=== PATIENT | male | born 1980 | race Caucasian/White ===

== ENCOUNTER 2022-04-04 12:08 | Emergency (ER) | payer BC, SELFPAY ==
[2022-04-04 12:15] VITALS: BP 142/91; PULSE 77; RESP 20; TEMP 36.7; O2SAT 97; BMI 45.9
[2022-04-04 12:30] VITALS: BP 127/73; PULSE 66; RESP 20; O2SAT 96
--- NOTE | 2022-04-04 12:34 | ED_ITS ---
HPI - General Adult General Chief complaint: Arrhythmia/Palpitations Stated complaint: Irregular heart beat Time Seen by Provider: 04/04/22 12:11 Source: patient Mode of arrival: ambulatory Limitations: no limitations History of Present Illness HPI narrative: 42-year-old male coming in today with concerns about skipped beats. Patient states that he has a pulse oximetry at home and he noticed that on the pulse ox imetry the rib be a skipped beat every now and then. He then took his pulse for a while and noticed that every now and then he would skip a beat. He denies feeling the skipped beats. He denies any symptoms whatsoever. Patient does have family history of heart disease with members getting pacemakers. He also has obesity, hyperlipidemia, obstructive sleep apnea and anxiety himself. He does use a CPAP at night. He takes hydroxyzine as needed and atorvastatin daily. Review of Systems Status of ROS: Reports: 10 or more systems reviewed and unremarkable except as noted in History and below Exam Narrative: Exam Narrative: Overweight, well-developed patient in no acute distress. Alert and oriented. Answers questions appropriately. Mood and affect are appropriate. Thoughts are goal oriented and rational. No tangential or magical thinking noted. Patient speaks in full sentences without needing to catch their breath. HEENT: Normocephalic atraumatic. Pupils are equally round reactive to light. Extraocular muscles are intact. Conjunctivae are moist without any icterus noted. Moist mucous membranes. Posterior pharynx is normal. Neck is soft without any lymphadenopathy or thyromegaly. No masses are appreciated. Cardiovascular: Heart is regular rate and rhythm S1 and S2 are present without any murmurs. Lungs: Clear to auscultation bilaterally no wheezes rhonchi or rales are apprec iated. Patient takes deep breaths without any discomfort. Abdomen: Soft and nontender nondistended, protuberant with normal bowel sounds. Extremities: Bilateral lower extremities are without edema. Skin: Well perfused . Patient has some folliculitis over the abdominal wall which he states he sees Dermatology for. Const: Vital Signs, click to edit/add: Vital Signs - 24 hr 04/04/22 12:15 Temperature 98.1 F Pulse Rate [Pulse Oximeter] 77 Respiratory Rate 20 Blood Pressure [Le ft Upper Arm] 142/91 H Pulse Oximetry 97 Oxygen Delivery Me thod Room Air Course Course Hospital Course: Two EKGs were done: 1st EKG showed normal sinus rhythm with a pulse of 70 2nd EKG showed normal sinus rhythm with a PVC. Patient was hooked up to the heart monitor and there we also saw the occasional PVC. No other it arrhythmias were noted. Vital Signs Vital signs: Initial Vital Signs Temperature 98.1 F 04/04/22 12:15 Temperature Source Temporal Artery Scan 04/04/22 12:15 Pulse Rate 77 04/04/22 12:15 Respiratory Rate 20 04/04/22 12:15 Blood Pressure 142/91 H 04/04/22 12:15 Blood Pressure Mean 108 04/04/22 12:15 Blood Pressure Position Supine 04/04/22 12:15 Pulse Oximetry 97 04/04/22 12:15 Oxygen Delivery Method 04/04/22 12:15 Vital Signs Temperature 98.1 F 04/04/22 12:15 Pulse Rate 77 04/04/22 12:15 Respiratory Rate 20 04/04/22 12:15 Blood Pressure 142/91 H 04/04/22 12:15 Pulse Oximetry 97 04/04/22 12:15 Oxygen Delivery Method 04/04/22 12:15 Temperature 98.1 F 04/04/22 12:15 Pulse Rate 77 04/04/22 12:15 Respiratory Rate 20 04/04/22 12:15 Blood Pressure 142/91 H 04/04/22 12:15 Pulse Oximetry 97 04/04/22 12:15 Oxygen Delivery Method 04/04/22 12:15 Medical Decision Making MDM Narrative Medical decision making narrative: 42-year-old male with a symptomatic PVCs. We discussed what these are. We discussed following up with primary care if he feels like they are getting more frequent or if he starts to feel them. Patient was otherwise reassured. Discharge Plan Discharge Clinical Impression: Premature ventricular contraction Patient Disposition: Home, Self-Care Condition: Stable Additional Instructions: You have a premature ventricular contractions which are a benign extra heartbeat that you do not need to be concerned about. If they become more frequent you start to feel them or they cause you anxiety, follow-up with your primary care provider to discuss medications to decrease their frequency. Follow Up/Referrals: Chuck Vanessa MD [Primary Care Provider] - Stand Alone Forms: One On One Info Instructions
[2022-04-04 12:46] VITALS: BP 127/73; PULSE 66; RESP 20; TEMP 36.7
--- OUTSIDE RECORDS SUMMARY | 2022-04-04 12:46 | XMS_ITS | Encounter Summary ---
:1980 Author Organization [facility] Address [address] [place] [address] Care Team Providers Name Role Phone Unavailable Primary Care Provider Unavailable Reason for Visit Reason Onset Date Comments Testing For Upper Respiratory Virus Symptoms 06/23/2021 Encounter Details Date Type Department Care Team Description 06/23/2021 External Outreach Department of Family Shahriar Carpio Contact With And (Suspected) Exposure To COVID-19; [facility] Infection Upper Respiratory [facility], in [address] [address] [place], [place] [phone] (Work) [phone] Social History Tobacco Use Types Packs/Day Years Used Date Smoking Tobacco: Never Assessed Sex Assigned at Date Recorded Not on file documented as of this encounter Progress Notes Talia Malcolm R.N. - 06/23/2021 7:54 AM CST Encounter created for symptomatic infectious disease screening with possible COVID, Influenza, RSV, and/or Group A Strep testing. ACUTE CARE NURSE documented in this encounter Miscellaneous Notes Result Encounter Note - Ezio Glover R.N. - 06/24/2021 5:49 PM SUB ACUTE CARE NURSE The patient will be contacted if they are eligible and appointments are available for Monoclonal Antibody Infusion and/or Remote Patient Monitoring. The [facility] Covid Care Team (CCT) sends general guidance about COVID-19 to all patients by letter or portal, except when a patient is hospitalized or resides in a shelter. [facility] will call all adult patients at highest risk for severe complications of COVID-19 (MASS 3 or greater) and all who require an inbound sales advisor. Any patient with a MASS score 1 or greater or a COVID-19 score 1 or greater may be at higher risk ofsevere disease. These patients will follow up directly with primary care. The primary care team willdecide if the patient needs a phone call or a follow up portal message to assess symptom severity, provide individualized guidance on symptom monitoring or symptom management, or to reinforce when to se ek care. [facility] encourages patients to follow up with their PCP with questions, worsening symptoms, or for symptom management. For questions, contact the [facility] Care Team ([facility]): Pager: [phone] In basket: P [facility] COVID-19 POSITIVE Covid Care e-consult Components of the Monoclonal Antibody Selection Score (MASS) Compromised Immune System/Transplant = 4 points Chronic Kidney Disease on Dialysis = 4 points Age greater than or equal to 55 and chronic pulmonary disease = 3 points Age greater than or equal to 65 = 2 points Diabetes = 2 points Age greater than or equal to 55 AND cardiovascular disease = 2 points Age greater than or equal to 55 and hypertension = 1 point NOTE: At the time of testing, patients are instructed to obtain the result by calling the [facility] result line or by checking their online services account. ACUTE CARE NURSE documented in this encounter Plan of Treatment Not on filedocumented as of this encounter Procedures Procedure Name Priority Date/Time Associated Diagnosis Comme nts INFLUENZA A/B AND Routine 06/23/2021 8:29 AM Infection Upper R esults for this RSV, PCR, VARIES SUB ACUTE CARE NURSE Respiratory procedure a re in the results section. SARS CORONAVIRUS-2 Routine 06/23/2021 8:29 AM Contact With And Results for this RNA, V SUB ACUTE CARE NURSE (Suspected) Exposure procedu re are in To COVID-19 the results section. documented in this encounter Results Influenza A/B and RSV, PCR, Varies (06/23/2021 8:29 AM SUB ACUTE CARE NURSE) [facility] Method Time Signature Influenza A/B Swab, 07/01/2021 DTL and RSV, Nasopharynx 9:54 PM SUB ACUTE CARE NURSE Source Influenza A, Undetected Undetected 07/01/2021 DTL PCR 9:54 PM SUB ACUTE CARE NURSE Comment: Influenza A RNA absent. Influenza B, PCR Undetected Undetected 07/01/2021 9:54 PM CS T DTL Comment: Influenza B RNA absent. Respiratory Syncytial Virus, PCR Undetected Undetected 9:54 PM SUB ACUTE CARE NURSE DTL Comment: RSV RNA absent. ----ADDITIONAL INFORMATION---- This test has been modified from the man ufacturer's instructions. Its performance characteristics were determi he by [facility] in a manner consistent with CLIA requirements. This test has not been cleared or approved by the U.S. Food and Drug Administration . Specimen Anatomical Collection Method Collection Time Receive d Time (Source) Location / / Volume Laterality Varies 06/23/2021 8:29 AM (Nasopharynx) SUB ACUTE CARE NURSE 11:22 PM SUB ACUTE CARE NURSE Shahriar Carpio D.O. LAB MICROBIOLOGY - GENERAL O RDERABLES Performing Organization Address City/State/ZIP Code Phon e Number [facility] - [address] [place], [place] [address] [facility] [place] [address] Laboratories-[facility] [address] (ABNORMAL) SARS Coronavirus-2 RNA, V Symptomatic (06/23/2021 8:29 AM SUB ACUTE CARE NURSE) [facility] Method Time Signature SARS-CoV-2 Swab, 06/24/2021 [facility] Specimen Nasopharynx 12:14 AM Source SUB ACUTE CARE NURSE SARS CoV-2 Detected (A) Undetected 06/24/2021 [facility] RNA, TMA 12:14 AM SUB ACUTE CARE NURSE Comment: SARS-CoV-2 RNA present. ----ADDITIONAL INFORMATION---- This molecular amplification test was pe rformed using the Aptima SARS-CoV-2 assay ([employer] on the Resermaps tem under emergency use authorization (EUA) by the U.S. Food and Drug Administ ration. Fact sheets for this EUA assay can be fo und at the following links: For Healthcare Providers: https://www.fd a.gov/media/689319/download For Patients: https://www.fda.gov/media/ 020196/download Specimen Anatomical Collection Method Collection Time Receive d Time (Source) Location / / Volume Laterality Varies 06/23/2021 8:29 AM 3:46 (Nasopharynx) SUB ACUTE CARE NURSE PM SUB ACUTE CARE NURSE Shahriar Carpio D.O. LAB MICROBIOLOGY - GENERAL O RDERABLES Performing Organization Address City/State/[facility] Phon e Number [facility]- [address] [place] [address] [place] [address] System in [place] [address] [place] [address] documented in this encounter Visit Diagnoses Diagnosis Contact With And (Suspected) Exposure To COVID-19 Infection Upper Respiratory documented in this encounter Additional Health Concerns Infection Onset Date Last Indicated Resolved Time COVID19 Pending 06/23/2021 06/23/2021 06/24/2021 12:14 AM SUB ACUTE CARE NURSE documented as of this encounter
--- OUTSIDE RECORDS SUMMARY | 2022-04-04 12:46 | XMS_ITS | Encounter Summary ---
:1980 Author Organization [facility] Address [address] [place] [address] Care Team Providers Name Role Phone Unavailable Primary Care Provider Unavailable Encounter Details Date Type Department Care Team Description 02/13/2021 Admin Visit Department of Family Medicine, [address] in [address] [phone] Social History Tobacco Use Types Packs/Day Years Used Date Smoking Tobacco: Never Assessed Sex Assigned at Date Recorded Not on file documented as of this encounter Plan of Treatment Not on filedocumented as of this encounter Visit Diagnoses Not on filedocumented in this encounter Additional Health Concerns Infection Onset Date Last Indicated Resolved Time COVID19 Pending 02/13/2021 02/13/2021 02/14/2021 7:36 AM CDT documented as of this encounter
--- OUTSIDE RECORDS SUMMARY | 2022-04-04 12:46 | XMS_ITS | Encounter Summary ---
:1980 Author Organization [facility] Address [address] [place] [address] Care Team Providers Name Role Phone Unavailable Primary Care Provider Unavailable Reason for Visit Reason Onset Date Comments Outpatient COVID-19 Testing 03/03/2021 Encounter Details Date Type Department Care Team Description 03/03/2021 External Outreach Department of Family Post, Kevin Jama, Contact With And Medicine, [place] [address] M.D. (Suspected) Exposure Street Professional [address] To COVID-19 (Primary Building in [place], [place] Dx) [place] [phone] [place] [address] [place], [place] (Work) [phone] Social History Tobacco Use Types Packs/Day Years Used Date Smoking Tobacco: Never Assessed Sex Assigned at Date Recorded Not on file documented as of this encounter Progress Notes John Avendaño II, R.N. - 03/03/2021 1:59 PM CDT Encounter created for COVID-19 screening. documented in this encounter Plan of Treatment Not on filedocumented as of this encounter Procedures Procedure Name Priority Date/Time Associated Comments Diagnosis SARS CORONAVIRUS 2 Routine 03/03/2021 4:38 PM Contact With And Results for this PCR DETECT, V CDT (Suspected) procedure are in Exposure To the results COVID-19 section. documented in this encounter Results SARS Coronavirus 2 PCR Detect, V Asymptomatic (03/03/2021 4:38 PM CDT) [facility] Method Time Signature SARS-CoV-2 Swab, 03/04/2021 [facility] Specimen Nasopharynx 5:40 AM CDT Source SARS-CoV-2 Undetected Undetected 03/04/2021 [facility] RNA by PCR 5:40 AM CDT Comment: SARS-CoV-2 RNA absent. This result does not rule out COVID-19 in the patient, as the sensitivity of the test depends o n the timing of the specimen collection and the quality of the specim en. Result should be correlated with patient's history and clinical presentat ion. ----ADDITIONAL INFORMATION---- This RT-PCR test using the jessica SARS-Co V-2 assay ([employer] performed on the jessica 6800/8800 S ystem has received Emergency Use Authorization (EUA) by the U.S. Food and Drug Administration, and is modified from the pile driver engineer's instructions wit h a bridging study. Performance characteristics were verified by [facility] inic in a manner consistent with CLIA requirements. Fact sheets for this Emergency Use Autho rization (EUA) assay can be found at the following links: For Healthcare Providers: https://www.PixSpree a.gov/media/603849/download For Patients: https://www.fda.gov/media/ 683804/download Specimen Anatomical Collection Method Collection Time Receive d Time (Source) Location / / Volume Laterality Varies 03/03/2021 4:38 PM 8:16 (Nasopharynx) CDT PM CDT Kevin Hernandez M.D. LAB MICROBIOLOGY - GENERAL O RDERABLES Performing Organization Address City/State/ZIP Code Phon e Number [facility] [address] [place]DE[place] [address] [facility] [place] [address] Laboratory Medicine and Pathology [address] [place] [address] Dr. HDEZ documented in this encounter Visit Diagnoses Diagnosis Contact With And (Suspected) Exposure To COVID-19 - Primary documented in this encounter Additional Health Concerns Infection Onset Date Last Indicated Resolved Time COVID19 Pending 03/03/2021 03/03/2021 03/04/2021 5:41 AM CDT documented as of this encounter
--- OUTSIDE RECORDS SUMMARY | 2022-04-04 12:46 | XMS_ITS | Encounter Summary ---
:1980 Author Organization [facility] Address [address] [place] [address] Care Team Providers Name Role Phone Unavailable Primary Care Provider Unavailable Reason for Visit Reason Comments COVID Inquiry Encounter Details Date Type Department Care Team Description 03/03/2021 Clinical Communication Central Appointment GabyedAVERY éprez Office in [facility] [address] [place], [place] [phone] Social History Tobacco Use Types Packs/Day Years Used Date Smoking Tobacco: Never Assessed Sex Assigned at Date Recorded Not on file documented as of this encounter Miscellaneous Notes Telephone Encounter - Alicia Ferrara I - 03/03/2021 10:59 AM CDT What is the purpose of the call?: Requesting Testing Only Request Testing In the past 14 days are any of the following symptoms new to you and not related to an existing health condition?: No symptoms noted In the past 14 days have you had close contact* with a person who has a LABORATORY CONFIRMED case ofCOVID-19?: Yes exposure noted. [facility] patient, instruct to quarantine, testing indicated (End Screening) Testing Recommendation Endpoint Is testing recommended? : Recommended to test Plan: Endpoint recommendation: Testing indicated, advised to be swabbed for COVID-19 Only , sent to [address]: located at [address], [place] [facility]. You must schedule an appointment for testing at this location. Please call [phone] during the hours of 8 am to 4:45 pm daily, or you can directly schedule your appointment through patient online services. Testing hours are Daily 9 am to 5 pm. When you arrive at the testing site: Remain in your vehicle and check-in by phone using the same appointment line number. and Please avoid using public transportation per CDC recommendation. If you do not have personal transportation please self-quarantine until a personal transportation option is available. *Reminder if sending patient for testing in [facility] or [facility], route encounter to the correct testing pool. documented in this encounter Plan of Treatment Not on filedocumented as of this encounter Visit Diagnoses Not on filedocumented in this encounter
--- OUTSIDE RECORDS SUMMARY | 2022-04-04 12:46 | XMS_ITS | Encounter Summary ---
:1980 Author Organization [facility] Address [address] [place] [address] Care Team Providers Name Role Phone Unavailable Primary Care Provider Unavailable Encounter Details Date Type Department Care Team Description 02/01/2013 Hospital Encounter [facility] Carlos Manuel Huggins M.D. [address] [phone] (Wo rk) Social History Tobacco Use Types Packs/Day Years Used Date Smoking Tobacco: Never Assessed Sex Assigned at Date Recorded Not on file documented as of this encounter Plan of Treatment Not on filedocumented as of this encounter Visit Diagnoses Not on filedocumented in this encounter
--- OUTSIDE RECORDS SUMMARY | 2022-04-04 12:46 | XMS_ITS | Encounter Summary ---
:1980 Author Organization [facility] Address [address] [place] [address] Care Team Providers Name Role Phone Unavailable Primary Care Provider Unavailable Reason for Visit Reason Comments COVID Inquiry Encounter Details Date Type Department Care Team Description 02/13/2021 Clinical Communication Central Appointment GabyedAVERY pérez Office in [facility] [address] [place], [place] [phone] Social History Tobacco Use Types Packs/Day Years Used Date Smoking Tobacco: Never Assessed Sex Assigned at Date Recorded Not on file documented as of this encounter Miscellaneous Notes Telephone Encounter - Loyd Roberts - 02/13/2021 1:57 PM CDT What is the purpose of the call?: Requesting Testing Only Request Testing In the past 14 days are any of the following symptoms new to you and not related to an existing health condition?: New sore throat, New myalgias (muscle aches), New chills Because of symptoms, transfer patient to: : [place] COVID Nurse Line (End Screening) Symptom Onset Date of symptom onset: 02/12/21 Testing Recommendation Endpoint Is testing recommended? : Transferred to nursing call line Plan: Endpoint recommendation: Transferred to Nursing/COVID Line/Care Team *Reminder if sending patient for testing in [facility] or [facility], route encounter to the correct testing pool. documented in this encounter Plan of Treatment Not on filedocumented as of this encounter Visit Diagnoses Not on filedocumented in this encounter
--- OUTSIDE RECORDS SUMMARY | 2022-04-04 12:46 | XMS_ITS | Encounter Summary ---
:1980 Author Organization [facility] Address [address] [place] [address] Care Team Providers Name Role Phone Unavailable Primary Care Provider Unavailable Encounter Details Date Type Department Care Team Description 06/22/2021 Patient Self-Triage [facility] Symptom Tool Builder, Provider Social History Tobacco Use Types Packs/Day Years Used Date Smoking Tobacco: Never Assessed Sex Assigned at Date Recorded Not on file documented as of this encounter Plan of Treatment Not on filedocumented as of this encounter Visit Diagnoses Not on filedocumented in this encounter
--- OUTSIDE RECORDS SUMMARY | 2022-04-04 12:46 | XMS_ITS | Encounter Summary ---
:1980 Author Organization [facility] Address [address] [place] [address] Care Team Providers Name Role Phone Unavailable Primary Care Provider Unavailable Encounter Details Date Type Department Care Team Description 03/03/2021 Admin Visit Department of Family Medicine, [address] [phone] Social History Tobacco Use Types Packs/Day Years [...]
--- OUTSIDE RECORDS SUMMARY | 2022-04-04 12:46 | XMS_ITS | Encounter Summary ---
:1980 Author Organization [facility] Address [address] [place] [address] Care Team Providers Name Role Phone Unavailable Primary Care Provider Unavailable Encounter Details Date Type Department Care Team Description 10/08/2020 Orders Only [facility] PCP [facility] Sa carla Villarreal M.D. [address] [place], [place] [phone] (Wo rk) Social History Tobacco Use Types Packs/Day Years Used Date Smoking Tobacco: Never Assessed Sex Assigned at Date Recorded Not on file documented as of this encounter Plan of Treatment Not on filedocumented as of this encounter Visit Diagnoses Not on filedocumented in this encounter
--- OUTSIDE RECORDS SUMMARY | 2022-04-04 12:46 | XMS_ITS | Encounter Summary ---
:1980 Author Organization [facility] Address [address] [place] [id number] Care Team Providers Name Role Phone Unavailable Primary Care Provider Unavailable Reason for Visit Reason Comments COVID Nurse Line Encounter Details Date Type Department Care Team Description 02/13/2021 Clinical Communication Division of Brittany Camarena COV ID Nurse Kenzie [facility] R.N. [facility] [place] [address] [facility] in [place], [place] [address] [place] [address] [place], [place] (Work) [phone] Social History Tobacco Use Types Packs/Day Years Used Date Smoking Tobacco: Never Assessed Sex Assigned at Date Recorded Not on file documented as of this encounter Miscellaneous Notes Telephone Encounter - Brittany Camarena RBarbiNBarbi - 02/13/2021 2:04 PM CDT COVID-19 Nurse Line Screening ASSESSMENT Region Select appropriate region: : [place] Age Pathway Select approprite pathway: : Adult Have you had close contact* with a person who has a LABORATORY CONFIRMED case of COVID-19 in the past 14 days?: No (Continue Screening) In the last 48 hours, have you had a fever* OR symptoms that are unrelated to a preexisting illness?: New sore throat, New chills, New vomiting, New muscle aches Have you received a COVID-19 vaccine in the last 72 hours? : No vaccine received (Continue Screening) Do you have any of the following urgent symptoms?: No urgent symptoms noted (Continue Screening) Have you tested positive for COVID-19 in the last 45 days?: No (Continue Screening) Are ALL the following criteria met: age between 18 to 75 yrs, main symptom is a sore throat with duration of 24 hrs to 7 days, onset of sore throat not associated with new upper respiratory symptoms*? : No, COVID testing is recommended (End Screening) Symptom Onset Date of symptom onset: 02/12/21 Testing Recommendation Endpoint Is testing recommended? : Recommended to test PLAN Endpoint recommendation: Symptomatic testing indicated, advised to be swabbed for COVID-19 Only , sent to [address]: located at [address] [place] [address]. NW, [facility] side [facility]. You must schedule an appointment for testing at this location. Please call [phone] during the hours of 8 am to 4:45 pm Tuesday through Tuesday, or you can directly schedule your appointment through patient online services. Testing hours are Tuesday through 9 am to 7 pm and Tuesday and Tuesday 9 am to 5 pm. When you arrive at the testing site: Remain in your vehicle and check-in by phone using the same appointment line number. and Please avoid using public transportation per CDC recommendation. If you do not have personal transportation please self-quarantine until a personal transportation option is available. Standard Care Points -Get a COVID -19 vaccine as soon as you can if not fully vaccinated. -Wash hands frequently with soap and water, use hand flamer sealer if soap and water aren't available. -Wear a mask over your nose and mouth to help protect yourself and others if not fully vaccinated and having no symptoms -Stay 6 feet between yourself and others who don't live with you. -Avoid crowds and poorly ventilated indoor spaces. -Seek emergent care if any of the following occur Trouble breathing Bluish lips or face Persistent pain or pressure in the chest New confusion or inability to rouse. -Notify your regular care provider of any new or worsening symptoms. Symptomatic Carepoints: Stay home and separate yourself from others and stay in a specific sick room if able. Avoid sharing personal or household items. Rest. Hydrate. Take Acetaminophen/Ibuprofen asneeded to control fever and muscles aches. Use over the counter medications as needed for other symptoms. If you have received a negative COVID-19 test result and continue to have new or worsening symptoms after 72 hours please call the COVID Nurse Line to assess if you need repeat testing or reach out to your Primary Care Provider for guidance. Education: Patient/caregiver able to teach back Patient agreeable to plan of care: Yes The following references were used: [facility] novel coronavirus (COVID- 19) resources Nursing judgement documented in this encounter Plan of Treatment Not on filedocumented as of this encounter Visit Diagnoses Not on filedocumented in this encounter
--- OUTSIDE RECORDS SUMMARY | 2022-04-04 12:46 | XMS_ITS | Clinical Summary ---
:1980 Author Organization [facility] Address [address] [place] [address] Care Team Providers Name Role Phone Unavailable Primary Care Provider Unavailable Source Comments Patient records contain information from all sites at [facility]. For routine questions regarding patient records, call [phone] during business hours, M-F 8:00 AM - 5:00 PM Central Time. Record requests for emergency care only can be directed to [phone] at any time.[facility] Social History Tobacco Use Types Packs/Day Years Used Date Smoking Tobacco: Never Assessed Sex Assigned at Date Recorded Not on file Plan of Treatment Health Maintenance Due Date Last Done Comments HIV Screening 1980 Hepatitis B Vaccines (1 of 1980 3 - 3-dose series) Hepatitis C Screening 1980 COVID-19 Vaccine (2 - 05/30/2021 04/04/2021 Booster for Angelo series) Depression Screening 06/13/2021 (Annual PHQ-2) DTaP,Tdap,and Td Vaccines 01/06/2022 01/07/2012 (2 - Td or Tdap) Influenza Vaccine (#1) 2022 05/01/2020, 04/10/2019, 03/17/2017, Additional history exists Lipid (Cholesterol) 01/19/2026 01/19/2021, 02/02/2019, Screening 12/20/2017 Pneumococcal vaccine (0-64 Aged Out No lo nger eligible years) based on patient 's age to complete this topic Insurance Payer Benefit Plan / Subscriber ID Effective Dates Phone Addre ss Type Group [employer] [place] [id number] 2020-Gabriele [phone] [address] [facility] t 00 [facility] [id number]
--- OUTSIDE RECORDS SUMMARY | 2022-04-04 12:46 | XMS_ITS | Encounter Summary ---
:1980 Author Organization [facility] Address [address] [place] [address] Care Team Providers Name Role Phone Unavailable Primary Care Provider Unavailable Reason for Visit Reason Onset Date Comments Testing For Upper Respiratory Virus Symptoms 02/13/2021 Encounter Details Date Type Department Care Team Description 02/13/2021 External Outreach Department of Family Post, Kevin Jama, Contact With And Medicine, Center [address] M.D. 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 - 02/13/2021 2:42 PM CDT Encounter created for symptomatic infectious disease screening with possible COVID, Influenza, RSV, and/or Group A Strep testing. documented in this encounter Plan of Treatment Not on filedocumented as of this encounter Procedures Procedure Name Priority Date/Time Associated Comments Diagnosis SARS CORONAVIRUS 2 Routine 02/13/2021 3:05 PM Contact With And Results for this PCR DETECT, V CDT (Suspected) procedure are in Exposure To the results COVID-19 section. documented in this encounter Results SARS Coronavirus 2 PCR Detect, V Symptomatic (02/13/2021 3:05 PM CDT) Patholo gist Method Time Signature SARS-CoV-2 Swab, 02/14/2021 [facility] Specimen Nasopharynx 7:35 AM CDT Source SARS-CoV-2 Undetected Undetected 02/14/2021 [facility] RNA by PCR 7:35 AM CDT Comment: SARS-CoV-2 RNA absent. This result does not rule out COVID-19 in the patient, as the sensitivity of the test depends o n the timing of the specimen collection and the quality of the specim en. Result should be correlated with patient's history and clinical presentat ion. ----ADDITIONAL INFORMATION---- This RT-PCR test using the jessica SARS-Co V-2 assay ([employer] performed on the jessica 6800/8800 S ystem has received Emergency Use Authorization (EUA) by the U.S. Food and Drug Administration, and is modified from the sql tech's instructions wit h a bridging study. Performance characteristics were verified by [facility] inic in a manner consistent with CLIA requirements. Fact sheets for this Emergency Use Autho rization (EUA) assay can be found at the following links: For Healthcare Providers: https://www.[employer] a.gov/media/268687/download For Patients: https://www.fda.gov/media/ 395389/download Specimen Anatomical Collection Method Collection Time Receive d Time (Source) Location / / Volume Laterality Varies 02/13/2021 3:05 PM 7:48 (Nasopharynx) CDT PM CDT Kevin Hernandez M.D. LAB MICROBIOLOGY - GENERAL O RDERABLES Performing Organization Address City/State/ZIP Code Phon e Number [facility] [address] [place], [place] [address] [place], [place] [address]. [place] [address] Laboratory Medicine and Pathology [address] [place] documented in this encounter Visit Diagnoses Diagnosis Contact With And (Suspected) Exposure To COVID-19 - Primary documented in this encounter Additional Health Concerns Infection Onset Date Last Indicated Resolved Time COVID19 Pending 02/13/2021 02/13/2021 02/14/2021 7:36 AM CDT documented as of this encounter
--- OUTSIDE RECORDS SUMMARY | 2022-04-04 12:46 | XMS_ITS | Clinical Summary ---
:1980 Author Organization [facility] [place] [address] Care Team Providers Name Role Phone Chuck Vanessa MD Primary Care Provider Allergies No known active allergies Medications Medication Sig Dispensed Refills Start Date End Date Status COENZYME Q10 10 MG CAP 1 tab daily 0 02/03/2009 Active CPAPIndications: MATTIE CPAP machine 1 Device 11 05/01/2020 Active (obstructive sleep for home use at apnea) pressure 8.4 cm/H2O, full face mask x1/3month with a full face cushion x1/mo oxyCODONE (ROXICODONE) Take 1 Tablet 12 Tablet 0 12/22/2020 Active 5 mg immediate release (5 mg) by mouth tabletIndications: every 4 hours Neck pain if needed for Pain. cyclobenzaprine Take 1 Tablet 30 tablet. 2 04/03/2021 Active (FLEXERIL) 10 mg (10 mg) by tabletIndications: mouth at Neck pain, Numbness bedtime if and tingling needed for Muscle Spasm. atorvastatin (LIPITOR) Take 1 Tablet 90 tablet. 3 04/03/2021 Active 10 mg (10 mg) by tabletIndications: mouth once Other hyperlipidemia daily. albuterol HFA Inhale 1-2 1 Each 3 06/29/2021 Acti ve (PRO-AIR; VENTOLIN; Puffs by mouth PROVENTIL) 90 every 4 hours mcg/actuation if needed for inhalerIndications: Shortness of Bronchospasm Breath 1st choice or Wheezing 2nd choice. SulfaCleanse 8-4 8-4 % WASH TO 0 04/06/2021 Active suspension AFFECTED AREA ON BODY ONCE DAILY LATHER AND LET SIT FOR SEVERAL MINUTES BEFORE RINSING hydrOXYzine HCL Take 1-2 60 Tablet 2 02/08/2022 Act miki (ATARAX) 25 mg Tablets (25-50 tabletIndications: mg) by mouth 3 Anxiety times daily if needed for Anxiety. amoxicillin-clavulanat Take 1 Tablet 14 Tablet 0 03/20/2022 e 875-125 mg tablet by mouth two (AUGMENTIN)Indications times daily : Acute non-recurrent with meals for pansinusitis 7 days. Active Problems Problem Noted Date Morbid obesity with BMI of 45.0-49.9, adult 12/22/2020 MATTIE 04/2016 AHI-24 (previous was 76 in 2010) 6 Sleep apnea 03/23/2016 left wrist ECU tendonitis 06/21/2014 Left wrist injury 06/03/2014 Rotator cuff tendonitis of left shoulder 06/03/2014 Hyperlipidemia 05/09/2013 Deviated nasal septum 11/10/2012 GERD (gastroesophageal reflux disease) 01/07/2009 Anxiety state, unspecified 05/30/2007 Encounters Date Type Specialty Care Team Description 03/21/2022 Telephone Funmi Christensen, Annieoi ntment Request PA 03/20/2022 Office Visit Ely Shah NP Sinus Pr oblem 03/20/2022 Travel 02/08/2022 Office Visit Chuck Vanessa MD Abdo josiah Pain (LLQ pain for the past 3 week s); Penis/Scrotum P roblem (Left sided groin amy n into the scrotum) 02/08/2022 Travel from Last 3 Months Immunizations Name Administration Dates Next Due COVID-19 vaccine (Angelo-J&J) PF, 04/04/2021 MDV Influenza, IIV3 (Age >=3 years) 07/17/2013, 03/16/2012 Influenza, IIV4 03/11/2022, 05/01/2020, 04/10/2019, 03/17/2017, 03/22/2016, 03/13/2015, 03/14/2014 Influenza, IIV4 (=>6mos) MDV 04/17/2016 Tdap 01/07/2012 01/06/2022 Family History Medical History Relation Name Comments Heart Disease Maternal Grandmother Early age Cancer Paternal Grandfather Relation Name Status Comments Maternal Grandmother Paternal Grandfather Social History Tobacco Use Types Packs/Day Years Used Date Former Smoker Cigars Quit: 06/13/19 06 Smokeless Tobacco: Never Used Tobacco Cessation: Counseling Given: Yes Comments: 3-4 cigars per year -noted 06/14 07/04 Alcohol Use Standard Drinks/Week Comments Yes 0 (1 standard drink = 0.6 oz pure alcoho l) 1 beer per month Alcohol Habits Answer Date Recorded How often do you have a drink containing alcohol? Not asked How many drinks containing alcohol do you have on a Not aske d typical day when you are drinking? How often do you have six or more drinks on one Not asked occasion? 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 Obstetrics History Last Filed Vital Signs Vital Sign Reading Time Taken Comments Blood Pressure 154/91 03/20/2022 11:30 AM CDT Pulse 66 03/20/2022 11:30 AM CDT Temperature 36.8 ??C (98.3 ??F) 03/20/2022 11:30 AM CDT Respiratory Rate 16 03/20/2022 11:30 AM CDT Oxygen Saturation 98% 03/20/2022 11:30 AM CDT Inhaled Oxygen Concentration - - Weight 146.5 kg (323 lb) 03/20/2022 11:30 AM CDT Height 179.7 cm (5' 10.75) 02/08/2022 11:03 AM CDT Body Mass Index 45.37 02/08/2022 11:03 AM CDT Plan of Treatment Upcoming Encounters Date Type Specialty Care Team Description 04/06/2022 Office Visit Nuno Tipton MD [address] [place] [address] (Wo rk) 04/07/2022 Office Visit Funmi Christensen PA [address] [place], [place] [address], [place] [address] (Wo rk) Health Maintenance Due Date Last Done Comments COVID-19 vaccine series (2 - 05/30/2021 04/04/2021 Booster for Angelo series) Tetanus booster 01/06/2022 01/07/2012 Depression screening for age 12+ 07/03/2022 07/03/2021, , 08/04/2018, Additional history exists BMI (ht and wt on same day) for 02/08/2023 02/08/2022, 03/14, age 18+ 12/22/2020, Additional history exists Lipids for age 35-44 01/19/2026 01/19/2021, 02/02/2019, 12/20/2017, Additional history exists Tdap Completed 01/07/2012 Hepatitis C screening for age Completed 02/08/2022 18-79 Influenza for age 9-49 Completed 03/11/2022, 05/01/2020, 04/10/2019, Additional history exists Procedures Procedure Name Priority Date/Time Associated Comments Diagnosis UA W/ SEDIMENT EXAM Routine 02/08/2022 11:45 Abdominal pain, L LQ Results for this REFLEXED PER CRITERIA AM CDT (left lower proced ure are in quadrant) the results section. CBC WITH AUTO Routine 02/08/2022 11:45 Abdominal pain, LLQ Res ults for this DIFFERENTIAL AM CDT (left lower procedure are i n quadrant) the results section. CBC WITH AUTO Routine 02/08/2022 11:45 Abdominal pain, LLQ Res ults for this DIFFERENTIAL AM CDT (left lower procedure are i n quadrant) the results section. ANTI HCV Routine 02/08/2022 11:45 Need for hepatitis Resul ts for this AM CDT C screening test procedure a re in the results section. from Last 3 Months Results CBC WITH AUTO DIFFERENTIAL (02/08/2022 11:45 AM CDT) P athologist Signature WHITE BLOOD 7.7 4.5 - 11.0 02/08/2022 [facility] COUNT thou/cu mm 11:49 AM CDT [facility] RED BLOOD COUNT 5.15 4.30 - 02/08/2022 [facility] 5.90 11:49 AM CDT [place] mil/cu mm CLINIC HEMOGLOBIN 15.2 13.5 - 02/08/2022 [facility] 17.5 g/dL 11:49 AM CDT [facility] HEMATOCRIT 45.6 37.0 - 02/08/2022 [facility] 53.0 % 11:49 AM CDT [facility] MCV 89 80 - 100 02/08/2022 [facility] fL 11:49 AM CDT [facility] MCH 29.5 26.0 - 02/08/2022 [facility] 34.0 pg 11:49 AM CDT [facility] MCHC 33.3 32.0 - 02/08/2022 [facility] 36.0 g/dL 11:49 AM CDT [facility] RDW 13.3 11.5 - 02/08/2022 [facility] 15.5 % 11:49 AM T [facility] PLATELET COUNT 265 140 - 440 02/08/2022 [facility] thou/cu mm 11:49 AM T [facility] MPV 11.0 6.5 - 11.0 02/08/2022 [facility] fL 11:49 AM CDT [facility] % NEUT 64.5 % 02/08/2022 [facility] 11:49 AM CDT [facility] % LYMPH 24.5 % 02/08/2022 [facility] 11:49 AM CDT [facility] % MONO 7.8 % 02/08/2022 [facility] 11:49 AM CDT [facility] % EOS 2.8 % 02/08/2022 [facility] 11:49 AM CDT [facility] % BASO 0.4 % 02/08/2022 [facility] 11:49 AM CDT [facility] ABSOLUTE 5.0 1.7 - 7.0 02/08/2022 [facility] NEUTROPHILS thou/cu mm 11:49 AM CDT [facility] ABSOLUTE 1.9 0.9 - 2.9 02/08/2022 [facility] LYMPHOCYTES thou/cu mm 11:49 AM CDT [facility] ABSOLUTE 0.6 <0.9 02/08/2022 [facility] MONOCYTES thou/cu mm 11:49 AM CDT [facility] ABSOLUTE 0.2 <0.5 02/08/2022 [facility] EOSINOPHILS thou/cu mm 11:49 AM CDT [facility] ABSOLUTE 0.0 <0.3 02/08/2022 [facility] BASOPHILS thou/cu mm 11:49 AM CDT [facility] Specimen Anatomical Collection Method / Collection Time Recei panchito Time (Source) Location / Volume Laterality Blood BLOOD SPECIMEN / Venipuncture / 02/08/2022 11:45 02/08 Unknown Unknown AM CDT 11:45 AM CDT Chuck Vanessa MD HEMATOLOGY Performing Organization Address City/State/ZIP Code Phon e Number [facility] [address] [place] [address] ANTI HCV (02/08/2022 11:45 AM CDT) [facility] Research Method [place] Signature HEPATITIS C Non-Reacti Non-Reacti 02/09/2022 [facility] ANTIBODY ve ve 4:30 AM CDT LABORATORY-[facility] LABORATORY Comment: Antibodies to HCV not detected; does not exclude the possibility of exposure to HCV. Specimen Anatomical Collection Method / Collection Time Recei panchito Time (Source) Location / Volume Laterality Blood BLOOD SPECIMEN / Venipuncture / 02/08/2022 11:45 02/08 Unknown Unknown AM CDT 11:45 AM CDT Chuck Vanessa MD SEND OUTS Performing Organization Address City/State/ZIP Code Phon e Number [facility] [address] [place], [place] [address] [address] LABORATORY-CENTRAL 2000 LABORATORY UA W/ SEDIMENT EXAM REFLEXED PER CRITERIA (02/08/2022 11:45 AM CDT) [facility] Research Method Time Signature COLOR Yellow Yellow Color 02/08/2022 [facility] 11:50 AM CDT [facility] CLARITY Clear Clear 02/08/2022 [facility] Clarity 11:50 AM CDT [facility] SPECIFIC 1.020 1.010, 02/08/2022 [facility] GRAVITY,URINE 1.015, 11:50 AM CDT [place] 1.020, 1.025 [facility] PH,URINE 6.0 6.0, 7.0, 02/08/2022 [facility] 8.0, 5.5, 11:50 AM CDT [place] 6.5, 7.5, CLINIC 8.5 UROBILINOGEN, Normal Normal EU/dl 02/08/2022 [facility] H QUALITATIVE 11:50 AM CDT [facility] PROTEIN, Negative Negative 02/08/2022 [facility] URINE mg/dL 11:50 AM CDT [facility] GLUCOSE, Negative Negative 02/08/2022 [facility] URINE mg/dL 11:50 AM CDT [facility] KETONES,URINE Negative Negative 02/08/2022 [facility] mg/dL 11:50 AM CDT [facility] BILIRUBIN,URI Negative Negative 02/08/2022 [facility] 11:50 AM CDT [facility] OCCULT Negative Negative 02/08/2022 [facility] BLOOD,URINE 11:50 AM CDT [facility] NITRITE Negative Negative 02/08/2022 [facility] 11:50 AM CDT [facility] LEUKOCYTE Negative Negative 02/08/2022 [facility] ESTERASE 11:50 AM T [facility] Specimen Anatomical Collection Method Collection Time Receive d Time (Source) Location / / Volume Laterality Urine URINE SPECIMEN / Non-Blood / 02/08/2022 11:45 022 Unknown Unknown AM CDT 11:45 AM CDT Chuck Vanessa MD URINE Performing Organization Address City/State/ZIP Code Phon e Number [facility] [address] [place] [address] from Last 3 Months Insurance Payer Benefit Plan / Subscriber ID Effective Phone Address T ype Group Dates WC WORKERS WC WORKERS COMP [id number] Effective for [phone] COMP all dates 51 [id number] [place] [id number] WC WORKERS WC [facility] [id number] 2014-Pres [address] [facility] [address] [place] [address] [employer] [place] [id number] 2020-Prese [address] [place] [address] Jerrica,Conner Workers Comp Self [address] (Home) E [phone] [place] (Work) [address] Conner Becerril Workers Comp Self 1980 [address] ([address]) [place] [address] [facility] Employer [address][birth year]13/[address] [employer] (Home) S [phone] [place] (Work) [address] [employer] Other 06/13/2000 AT [place]: [employer] [address] [place] [address] Care Teams Accounts Payable Manager Relationship Specialty Start Date End Date Chuck Vanessa MD PCP - General 12/17/05 [address] [place] [address]
--- OUTSIDE RECORDS SUMMARY | 2022-04-04 12:46 | XMS_ITS | Encounter Summary ---
:1980 Author Organization [facility] Address [address] [place] [address] Care Team Providers Name Role Phone Unavailable Primary Care Provider Unavailable Encounter Details Date Type Department Care Team Description 06/06/2020 Admin Visit Department of Family Medicine, [address] [address] [facility] [phone] Social History Tobacco Use Types Packs/Day Years Used Date Smoking Tobacco: Never Assessed Sex Assigned at Date Recorded Not on file documented as of this encounter Plan of Treatment Not on filedocumented as of this encounter Visit Diagnoses Not on filedocumented in this encounter Additional Health Concerns Infection Onset Date Last Indicated Resolved Time COVID19 Pending 06/06/2020 06/06/2020 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
--- OUTSIDE RECORDS SUMMARY | 2022-04-04 12:46 | XMS_ITS | Encounter Summary ---
:1980 Author Organization [facility] Address [address] [place] [address] Care Team Providers Name Role Phone Unavailable Primary Care Provider Unavailable Reason for Visit Reason Onset Date Comments Testing For Upper Respiratory Virus Symptoms 06/06/2020 Encounter Details Date Type Department Care Team Description 06/06/2020 External Outreach Department of Shahriar Briones [facility] Medicine, [facility] (Primary Building, in [address]) [place], [place] [address] [facility] [address] [place], [place] [phone] [id number] (Work) [phone] Social History Tobacco Use Types Packs/Day Years Used Date Smoking Tobacco: Never Assessed Sex Assigned at Date Recorded Not on file documented as of this encounter Progress Notes Tigre Mullen R.N. - 06/06/2020 12:04 PM CST Encounter created for symptomatic infectious disease screening with possible COVID, Influenza, and RSV testing. ARY documented in this encounter Plan of Treatment Not on filedocumented as of this encounter Procedures Procedure Name Priority Date/Time Associated Diagnosis Comme nts SARS CORONAVIRUS-2 Routine 06/06/2020 1:17 PM Infection Upper Results for this RNA, V ACTUARY Respiratory procedure are i n the results section. documented in this encounter Results SARS Coronavirus-2 RNA, V Symptomatic (06/06/2020 1:17 PM ACTUARY) [facility] Method Time Signature SARS-CoV-2 Swab, 06/06/2020 MKTO Specimen Nasopharynx 11:02 PM Source ACTUARY SARS CoV-2 Undetected Undetected 06/06/2020 MKDULCE RNA, TMA 11:02 PM ACTUARY Comment: SARS-CoV-2 RNA absent. This result does not rule out COVID-19 in the patient, as the sensitivity of the test depends o n the timing of the specimen collection and the quality of the specim en. Result should be correlated with patient's history and clinical presentat ion. ----ADDITIONAL INFORMATION---- This molecular amplification test was pe rformed using the Aptima SARS-CoV-2 assay ([employer] on the Dialog[employer] tem under emergency use authorization (EUA) by the U.S. Food and Drug Administ ration. Fact sheets for this EUA assay can be fo und at the following links: For Healthcare Providers: https://www.D[employer]Yog[employer] a.gov/media/744588/download For Patients: https://www.fda.gov/media/ 985446/download Specimen Anatomical Collection Method Collection Time Receive d Time (Source) Location / / Volume Laterality Varies 06/06/2020 1:17 PM 0 6:49 (Nasopharynx) ACTUARY PM ACTUARY Shahriar Carpio D.O. LAB MICROBIOLOGY - GENERAL O RDERABLES Performing Organization Address City/State/ZIP Code Phon e Number [facility]- [address] [place] [address] [place] [address] System [address] documented in this encounter Visit Diagnoses Diagnosis Infection Upper Respiratory - Primary documented in this encounter Additional Health Concerns Infection Onset Date Last Indicated Resolved Time COVID19 Pending 06/06/2020 06/06/2020 06/06/2020 11:03 PM ACTUARY documented as of this encounter
== END 2022-04-04 12:49 | disposition home or self-care (01) ==
LOC: ED 12:44
PROVIDERS: Emergency Provider Family Medicine; PCP Family Medicine
DX: I49.3 Ventricular premature depolarization (principal)
CPT/HCPCS: 93005; 99283; 99284

== ENCOUNTER 2022-08-02 21:56 | Emergency (ER) | payer BC, SELFPAY ==
[2022-08-02 22:03] VITALS: BP 131/88; PULSE 105; RESP 18; TEMP 37.1; O2SAT 96
--- NOTE | 2022-08-02 22:35 | ED.NAVMDI ---
HPI - Nausea/Vomiting/Diarrhea General Chief complaint: Nausea/Vomiting Stated complaint: stomach bug, can't keep anything down Time Seen by Provider: 08/02/22 22:34 History of Present Illness HPI Narrative: This 42-year-old male comes in reporting vomiting and diarrhea for the past 18-20 hours. He has had recurrent vomiting and diarrhea symptoms but denies having any blood in the toilet. He did measure a temperature of around 102? F prior to arrival but comes here with normal temperature. He does report some pain in the left lower quadrant that is occurred over the last couple hours. Does not report any worsening pain with movement or activity. He states that he has a history of an umbilical hernia that was repaired. At that time when he had a CT scan there was evidence of diverticulosis. Related Data Home Medications Medication Instructions Recorded Confirmed atorvastatin 10 mg tablet mg 08/02/22 famotidine 20 mg tablet (Pepcid AC) 20 mg PO QHS 08/02/22 08/02/22 hydroxyzine HCl 25 mg tablet mg 08/02/22 Allergies Allergy/AdvReac Type Severity Reaction Status Date / Time No Known Drug Allergies Allergy Verified 08/02/22 22:02 Review of Systems Status of ROS: Reports: 10 or more systems reviewed and unremarkable except as noted in History and below Narrative: Constitutional: No fevers, no weight gain or loss. Eyes: No discharge. No vision changes. HENT: No congestion, no sore throat, no ear pain. Cardiovascular: No chest pain, no palpitations. Respiratory: No shortness of breath, no wheezes, no cough. Gastrointestinal: Nausea, vomiting, and diarrhea with some mild abdominal pain in the left lower quadrant. Genitourinary: No dysuria, no hematuria. Musculoskeletal: Normal range of motion. Skin: No rashes, no pruritis. Neurological: No dizziness, weakness, sensory change, speech change. Endo/Heme/Allergies: No bruising or bleeding. No polydipsia. Pysch: no suicidality, no anxiety, no insomnia. All other systems reviewed and are negative. [facility] Social History Smoking Status: Light tobacco smoker What tobacco products do you use: cigars Do you use any of these nicotine containing products: None Second hand tobacco smoke exposure: No How often do you have a drink containing alcohol: never How often do you have six or more drinks on one occasion: Never AUDIT-C Alcohol total score: 0 Non-prescribed substance use: denies use Exam Narrative: Exam Narrative: Constitutional: Well-developed, well-nourished, no acute distress. HEENT: Normocephalic, atraumatic. Neck: Normal range of motion. Nontender. Supple. Heart: Regular. No murmurs. Normal rate. Intact distal pulses. Lungs: Clear to auscultation. No chest discomfort. No wheezes, rhonchi, or rales. Abdomen: Normal bowel sounds. No rebound tenderness. Mild tenderness in left lower quadrant. Genitalia: Deferred. Back: No midline tenderness. Normal range of motion. Extremities: Normal range of motion. No injury. Skin: Intact. No rash. Warm. No erythema or pallor. Neurologic: No altered sensation. No weakness. Alert and oriented. Psychiatric: No suicidality. No anxiety or depression. No insomnia. Nursing notes and vitals signs are reviewed. Const: Vital Signs, click to edit/add: Vital Signs - 24 hr 08/02/22 22:03 Temperature 98.8 F Pulse Rate [Pulse Oximeter] 105 H Respiratory Rate 18 Blood Pressure [Le ft Upper Arm] 131/88 Pulse Oximetry 96 Oxygen Delivery Me thod Room Air Course Vital Signs Vital signs: Initial Vital Signs Temperature 98.8 F 08/02/22 22:03 Temperature Source Temporal Artery Scan 08/02/22 22:03 Pulse Rate 105 H 08/02/22 22:03 Pulse Rhythm 08/02/22 22:03 Respiratory Rate 18 08/02/22 22:03 Blood Pressure 131/88 08/02/22 22:03 Blood Pressure Mean 102 08/02/22 22:03 Pulse Oximetry 96 08/02/22 22:03 Oxygen Delivery Method 08/02/22 22:03 Vital Signs Temperature 98.8 F 08/02/22 22:03 Pulse Rate 105 H 08/02/22 22:03 Respiratory Rate 18 08/02/22 22:03 Blood Pressure 131/88 08/02/22 22:03 Pulse Oximetry 96 08/02/22 22:03 Oxygen Delivery Method 08/02/22 22:03 Temperature 98.8 F 08/02/22 22:03 Pulse Rate 105 H 08/02/22 22:03 Respiratory Rate 18 08/02/22 22:03 Blood Pressure 131/88 08/02/22 22:03 Pulse Oximetry 96 08/02/22 22:03 Oxygen Delivery Method 08/02/22 22:03 MDM - Nausea/Vomiting/Diarrhea MDM Narrative Medical decision making narrative: This patient comes in with symptoms typical of a gastroenteritis. He did report of fever at home but arrives here with normal temperature. He has not taken any medicines to reduce the fever. His report of pain in the left lower quadrant does arouse some suspicion for diverticulitis. I discussed this with the patient and indicated that a CT scan would be the best test to evaluate this if indicated. The plan is to place an IV and give IV fluids and Zofran. Lab results will be acquired and if the white count is increased and if symptoms worsen a CT scan can be considered. This is occurring at the end of my shift and results will be reviewed by the overnight physician and plans accordingly thereafter. Discharge Plan Discharge Clinical Impression: Gastroenteritis Patient Disposition: Home, Self-Care Condition: Stable Prescriptions: No Action atorvastatin 10 mg tablet Label Comments: TAKE ONE TABLET BY MOUTH ONE TIME DAILY hydroxyzine HCl 25 mg tablet Label Comments: TAKE ONE OR TWO TABLETS BY MOUTH THREE TIMES DAILY NEEDED FOR ANXIETY famotidine [Pepcid AC] 20 mg tablet 20 mg PO QHS Follow Up/Referrals: Chuck Vanessa MD [Primary Care Provider] - Stand Alone Forms: [facility] Info Instructions
[2022-08-02] MEDS: 0.9 % SODIUM CHLORIDE 1000 ml 1,000 ML IV (23:01)
[2022-08-02] MEDS: ONDANSETRON 2 MG/ML inj 4 MG IVP (23:01)
[2022-08-02 23:25] VITALS: BP 135/69; PULSE 84; RESP 16; TEMP 37.6; O2SAT 98
[2022-08-02 23:29] LABS: Basophils Absolute Auto 0.01 K/uL (0.00-0.30); Basophils Percent Auto 0.1 % (0.0-3.0); Eosinophils Absolute Auto 0.05 K/uL (0.00-0.50); Eosinophils Percent Auto 0.6 % (0.0-7.0); Hemoglobin* 14.6 gm/dL (13.5-17.5); Immature Granulocytes Abs Auto 0.02 K/uL (0.00-0.30); Immature Granulocytes Pct Auto 0.2 %; Mean Corpuscular HGB Conc 33 gm/dL (32-36); Mean Corpuscular Hemoglobin 29 pg (26-34); Mean Corpuscular Volume 88 fL (80-100); Monocytes Percent Auto 4.5 % (0.0-11.0); Neutrophils Percent Auto 84.6 % (42.0-72.0); Platelet Count* 262 K/uL (140-440); RDW Coefficient of Variation % 12.3 % (11.5-15.5); Red Blood Count 4.99 m/uL (4.30-5.90); White Blood Count* 8.64 K/uL (4.50-11.00)
[2022-08-02 23:34] LABS: Slide Review Reflex No
[2022-08-03 00:02] LABS: Blood Urea Nitrogen* 17 mg/dL (5-24); Calcium* 8.6 mg/dL (8.4-10.6); Carbon Dioxide* 24 mmol/L (20-32); Chloride* 105 mmol/L (96-114); Creatinine* 0.6 mg/dL (0.5-1.5); Estimated Glomerular Filt Rate 125 ml/min; Glucose* 108 mg/dL (60-115); Potassium* 3.3 mmol/L (3.6-5.1); Sodium* 138 mmol/L (135-149)
[2022-08-03] MEDS: 0.9 % SODIUM CHLORIDE 1000 ml 1,000 ML IV (00:29)
[2022-08-03 01:04] VITALS: BP 152/85; PULSE 89; RESP 16; O2SAT 98
== END 2022-08-03 01:05 | disposition home or self-care (01) ==
LOC: ED 22:43
PROVIDERS: Emergency Provider Emergency Medicine Emergency Medical Services; PCP Family Medicine
DX: K52.9 Noninfective gastroenteritis and colitis, unspecified (principal)
CPT/HCPCS: 36415; 80048; 85025; 96374; 99284; J2405; J7030

== ENCOUNTER 2022-12-02 21:10 | Emergency (ER) | payer BC, SELFPAY ==
[2022-12-02 21:30] LABS: Appearance Urine Slightly Cloudy (Clear); Bilirubin Urine Negative (Negative); Blood Urine 2+ (Negative); Color Urine Yellow (Yellow); Glucose Urine Negative (Negative); Ketones Urine Negative (Negative); Leukocyte Esterase Urine 1+ (Negative); Nitrite Urine Negative (Negative); Protein Urine Negative (Negative); Specific Gravity Urine 1.025 (1.000-1.030); Urobilinogen Urine 0.2 (0.2-1.0)
[2022-12-02 21:32] VITALS: BP 174/111; PULSE 84; RESP 18; TEMP 36.2; O2SAT 98; BMI 45.3
[2022-12-02 22:00] LABS: Bacteria Urine Few; Squamous Epithelial Cell Urine Few (None-Few)
--- NOTE | 2022-12-02 22:03 | ED.GENADULT ---
HPI - General Adult General Time Seen by Provider: 22:03 Date Seen: 12/02/22 Chief complaint: Urogenital Problems, Male Stated complaint: UTI or bladder infection Time Seen by Provider: 12/02/22 21:25 Source: patient, RN notes reviewed and old records reviewed Mode of arrival: ambulatory Limitations: no limitations History of Present Illness HPI narrative: 42-year-old male who comes in today with hematuria and dysuria. This been going on a couple of days, he was seen at the clinic 3 days ago and started on Diflucan with no improvement. No urinalysis was done. Patient reports prior history of urinary tract infection or prostatitis which resulted in about 12 weeks total of antibiotic treatment, says this started similar to symptoms today. Denies flank pain, fever, chills. Does have some lower abdominal pain but no pain in the perineum and no pain with stooling. No diarrhea. Related Data Home Medications Medication Instructions Recorded Confirmed atorvastatin 10 mg tablet 10 mg PO DAILY 08/02/22 12/02/22 hydroxyzine HCl 25 mg tablet mg 08/02/22 Previous Rx's Medication Instructions Recorded ciprofloxacin HCl 500 mg tablet 500 mg PO BID #28 tabs 12/02/22 Allergies Allergy/AdvReac Type Severity Reaction Status Date / Time No Known Drug Allergies Allergy Verified 12/02/22 21:32 PFSH PFS Social History Smoking Status: Light tobacco smoker What tobacco products do you use: cigars Do you use any of these nicotine containing products: None Second hand tobacco smoke exposure: No How often do you have a drink containing alcohol: never How often do you have six or more drinks on one occasion: Never AUDIT-C Alcohol total score: 0 Non-prescribed substance use: denies use Exam Narrative: Exam Narrative: General: Well-developed and well-nourished, no acute distress Head: Atraumatic and normocephalic Eyes: Pupils are equal reactive, extraocular motions intact, conjunctiva clear ENT: External nose and ears are normal, posterior pharynx without erythema or exudate Neck: No midline cervical tenderness, full spontaneous range of motion the neck, trachea midline, no adenopathy Heart: Regular rate and rhythm no murmurs or thrills Lungs: Clear to auscultation bilaterally without wheezes or crackles Abdomen: Soft, nontender, nondistended with active bowel sounds Musculoskeletal: No tenderness, deformity, or edema Neurologic: Awake, alert, and oriented x3, no gross focal neurologic deficits, cranial nerves intact as tested Psych: Mood and affect are appropriate Skin: No rashes Const: Vital Signs, click to edit/add: Vital Signs - 24 hr 12/02/22 21:32 Temperature 97.1 F L Pulse Rate [Pulse Oximeter] 84 Respiratory Rate 18 Blood Pressure [Le ft Upper Arm] 174/111 H Pulse Oximetry 98 Oxygen Delivery Me thod Room Air Course Course Hospital Course: Patient seen examined, prior records reviewed. Patient presents today with dysuria, suprapubic pain, hematuria. No CVA tenderness and not have much back pain, history of urinary tract infection this feels similar. Urinalysis with blood and few bacteria. Given history, patient will be started on ciprofloxacin pending cultures. Also consider kidney stone or other urogenital pathology as patient is otherwise healthy and recurrent urinary tract infection unusual in this age group. Follow-up closely with primary care and consider repeat visit with Urology. Vital Signs Vital signs: Initial Vital Signs Temperature 97.1 F L 12/02/22 21:32 Temperature Source Temporal Artery Scan 12/02/22 21:32 Pulse Rate 84 12/02/22 21:32 Pulse Rhythm Regular 12/02/22 21:32 Respiratory Rate 18 12/02/22 21:32 Blood Pressure 174/111 H 12/02/22 21:32 Blood Pressure Mean 132 H 12/02/22 21:32 Pulse Oximetry 98 12/02/22 21:32 Oxygen Delivery Method Room Air 12/02/22 21:32 Vital Signs Temperature 97.1 F L 12/02/22 21:32 Pulse Rate 84 12/02/22 21:32 Respiratory Rate 18 12/02/22 21:32 Blood Pressure 174/111 H 12/02/22 21:32 Pulse Oximetry 98 12/02/22 21:32 Oxygen Delivery Method Room Air 12/02/22 21:32 Temperature 97.1 F L 12/02/22 21:32 Pulse Rate 84 12/02/22 21:32 Respiratory Rate 18 12/02/22 21:32 Blood Pressure 174/111 H 12/02/22 21:32 Pulse Oximetry 98 12/02/22 21:32 Oxygen Delivery Method Room Air 12/02/22 21:32 Medical Decision Making Lab Data Labs: Lab Results 12/02/22 Range/Units 21:20 Urine Color Yellow (Yellow) Urine Appearance Slightly Cloudy A (Clear) Urine pH 6.0 (5.0-8.5) Ur Specific [place] 1.025 (1.000-1.030) Urine Protein Negative (Negative) Urine Glucose (UA) Negative (Negative) Urine Ketones Negative (Negative) Urine Blood 2+ A (Negative) Urine Nitrite Negative (Negative) Urine Bilirubin Negative (Negative) Urine Urobilinogen 0.2 (0.2-1.0) Ur Leukocyte Esterase 1+ A (Negative) Urine RBC 2-5 A (0-2) Urine WBC 2-5 (0-5) Ur Squamous Epith Cells Few (None-Few) Urine Bacteria Few A (None) Discharge Plan Discharge Clinical Impression: Acute cystitis, Hematuria Condition: Stable Instructions: Urinary Tract Infection in Men (DC) Additional Instructions: Follow-up with your primary care provider and consider repeat visit to Urology Activity Level: No Restrictions Discharge Diet: Regular Prescriptions: New ciprofloxacin HCl 500 mg tablet 500 mg PO BID Qty: 28 0RF No Action atorvastatin 10 mg tablet 10 mg PO DAILY Patient Comments: TAKE ONE TABLET BY MOUTH ONE TIME DAILY hydroxyzine HCl 25 mg tablet Patient Comments: TAKE ONE OR TWO TABLETS BY MOUTH THREE TIMES DAILY NEEDED FOR ANXIETY Follow Up/Referrals: Chuck Vanessa MD [Primary Care Provider] - Stand Alone Forms: [employer] Info Instructions
[2022-12-02] MEDS: CIPROFLOXACIN 500 MG TABLET PO (22:17)
--- OUTSIDE RECORDS SUMMARY | 2022-12-02 22:18 | XMS_ITS | Continuity of Care Document ---
Author Name Unknown Organization [facility] Address [address] [address] [place] [address] Phone Care Team Providers Care Finance Vice President Name Role Phone Ct Serrano MD Unavailable Unavailable Allergies, Adverse Reactions, Alerts Substance Reaction Status Criticality No Known Allergies Active No Inform ation Medications Medication Instructions Dosage Effective Dates (start - stop) Status Comments famotidine 20 mg tablet take 1 tablet by oral route every day 20 MG - Active atorvastatin 10 mg tablet take 1 tablet by oral route every day 10 MG - Active cyclobenzaprine 10 mg tablet take 1 tablet by oral route 3 times every day 10 MG - Active hydroxyzine HCl 25 mg tablet take 1 tablet by oral route every day 25 MG - Active oxycodone 5 mg capsule take 1 capsule by oral route every 6 hours as needed for pain 5 MG - Active Co [id number] E-Fish Oil 25 mg-150 (90-60) mg-200 unit capsule - Active Procedures Procedure Date Established Level 3 or 15-24 min 2019 Ugi Endo; W/bx 1/mx Level Iv-surg Path Gross/micro 20 Established Level 4 or 25-39 min 2019 Advance Directives Directive Yes / No Effective Date File Name No Information Encounters Encounter Description Practice Location Reason(s) For Visit Diagnoses Date Provider Providers Copied on Encounter Established Level 3 or 15-24 min [facility], [address] [address], [place], [place], [id number], [place] tel:[phone] [facility] GI Symptoms or Concerns (chief complaint) Gastro-esophag eal reflux disease without esophagitis 0 Maggie Fofana. [address] [facility], [address], [id number], [place]. tel:[phone] Referring Provider: Referral Self. [facility], [address] [address], [facility] [place], [id number], [place] tel:[phone] [facility] No Information 0 Juwan Huynh. [address] [facility], [facility] [address], [place], [id number], [place]. tel:[phone] Referring Provider: Ana Spence, [address] [place] [address], [facility] [place], [address] . tel:[phone] [facility], [address] [address], [facility] [place], [id number], [place] tel:[phone] [facility] Gastroesophage al reflux disease without esophagitisAbn ormal findings on dx imaging of prt digestive tractGastro-es ophageal reflux disease without esophagitis 0 Christiano Perez. [address] [facility], [address], [id number], [place]. tel:[phone] Referring Provider: Referral Self. Established Level 4 or 25-39 min [facility], [address] [address], [place], [id number], [place] tel:[phone] [facility] GI Symptoms or Concerns (chief complaint) Gastroesophage al reflux disease, unspecified whether esophagitis present 0 Maggie Fofana. [address] [place] [address], [address], [id number], [place]. tel:[phone] Referring Provider: Ar Beauchamp MD, [address] [place], [address]. tel:[phone] [facility], [address] [address], [place], [place], [id number], tel:[phone] No Information 0 No Information Referring Provider: Ar Beauchamp MD, [address] [place] [address], [address]. tel:[phone] Family History Family Member Type Diagnosis Age At Onset Father Problem (finding) Reflux Sister Problem (finding) High Cholesterol Mother Problem (finding) hypertension Father Problem (finding) GERD Mother Problem (finding) Colon polyps Brother Problem (finding) Alive and well Father Problem (finding) Sleep apnea Sister Problem (finding) Fatty Liver Father Problem (finding) Hypotension Father Problem (finding) Diabetes mellitus Brother Problem (finding) GERD Sister Problem (finding) depression Immunizations Vaccine Date Status Comments Afluria Qd administered Note: [facility] bi-directional interface ; Source: Other Registry Afluria Qd administered Note: [facility] bi-directional interface ; Source: Other Registry Afluria Qd administered Note: [facility] bi-directional interface ; Source: Other Registry Influenza administered Note: [facility] bi-d irectional interface ; Source: Other Registry Afluria Qd administered Note: [facility] bi-directional interface ; Source: Other Registry Afluria Qd administered Note: [facility] bi-directional interface ; Source: Other Registry Afluria Qd administered Note: [facility] bi-directional interface ; Source: Other Registry Influenza, seasonal, injectable administe red Note: [facility] bi- directional interface ; Source: Other Registry tetanus toxoid, reduced diphtheria toxoid, and acellular pertussis vaccine, adsorbed administered Note: [facility] bi-direct ional interface ; Source: Other Registry Payers Payer name Insurance type Covered republican ID Authorfredya donaldo(s) [facility] [id number] Social History Type Description Quantity Date Captured Comments Alcohol Use Details Caffeine Use Details Unknown Tobacco Use Status undefined Smoking Status Former smoker Sex Male Vital Signs Date / Time: Height Weight BMI Pulse Rate Blood Pressure Temperature Respiratory Rate Body Surface Area Head Circumference Head Circ. Percentile Wt./[place]. Percentile BMI percentile Pulse Ox Inhaled Ox 8:08 AM 71.00 in 139.253 kg (307.00 lbs) 42.8 1 kg/m pacheco (2) Chief Complaint And Reason For Visit From encounter dated '05/07/2020 08:08'. GI Symptoms or Concerns (chief complaint). Description: PRIOR DIAGNOSTICS:-- CT neck Saturday 04/07 at [facility] - reportedly normal, per patient (I was not able to pull this up)-- EGD 04/11/2020 for globus sensation, GERD - gastric inlet patch, otherwise normal esophagus. Mild patchy erythema with small erosions in the antrum. Normal duodenum. A: STOMACH, BIOPSY: 1. Erosive reactive gastropathy (see comment) C: ESOPHAGUS, MID, BIOPSY: 1. Gastric cardia type mucosa consistent with an inlet patch, and normal squamous mucosa B: ESOPHAGUS, DISTAL, BIOPSY: 1. Squamous mucosa with nonspecific regenerative change, cannot exclude reflux CHIEF COMPLAINT: Follow up after EGDHISTORY OF PRESENT ILLNESS:Conner Rubio was seen today for a Virtual visit. Prior to beginning, the patient consented to the visit being held via online conferencing. It was confirmed that there were no additional people present for the visit and the patient was in a private place. Umair is a 40 year-old male who has had heartburn over the years. Over 10 years ago, he was waking up every morning with heartburn, so his doctor prescribed ranitidine. He took this every evening for a while, but over time, it wasn't working quite as well, so he started taking it twice daily. As time went on, this too, didn't seem to be working as well. He felt like his body just stopped responding to it so decided to quit cold turkey. Although he had significant heartburn in the short-term, this eventually resolved and he did ok for a while off meds. He went about 8 years or so without taking any antacids.In August or September of 2019, he woke up one night at 2 am after an episode of volume regurgitation. Hestarted coughing nonstop. He had a similar cough a couple of years ago, where he got a whisker caught in his throat, and coughed for weeks until he was able to cough it back up. It then resolved. He thought this time, it would unfold in similar fashion, but it didn't. Shortly after this episode of regurgitation, he felt like something was stuck in his throat and his throat was a little bit sore, with some radiation of the pain up into his right ear. He was referred to ENT and had a laryngoscopy. He was told that he had an ulcer on the right side of his throat. By that point, he was taking Nexium 20 mg in the morning, and then ENT had him add Pepcid at bedtime. He eventually ran out of the Nexium and switched to Pepcid BID. He has also made a number of lifestyle modifications (not eating too close before bedtime, elevating the head of his bed.) He followed up with ENT and a repeat laryngoscopy demonstrated improvement. He was referred to GI and I recommended an EGD. This was unremarkable, as above. He remains on the Pepcid BID and symptoms and continues to do well with good control of his symptoms. He is considering tapering it down to once daily. In retrospect, he thinks some of this may have been related to sitting in his work truck with his head turned to the right toward his laptop. Now that he is on a new project and is sitting at a desk, it doesn't seem tammy a problem any longer. Reason For Referral Reason For Referral No Information Plan Of Treatment Date Type Action Status Referral Ordered: EGD Appointment date/timeframe: 04/11/2020 ordered History Of Present Illness Encounter Date Complaint History Of Prese nt Illness GI Symptoms or Concerns PRIOR DI AGNOSTICS:-- CT neck Saturday 04/07 at [facility] - reportedly normal, per patient (I was not able to pull this up)-- EGD 04/11/2020 for globus sensation, GERD - gastric inlet patch, otherwise normal esophagus. Mild patchy erythema with small erosions in the antrum. Normal duodenum. A: STOMACH, BIOPSY: 1. Erosive reactive gastropathy (see comment) C: ESOPHAGUS, MID, BIOPSY: 1. Gastric cardia type mucosa consistent with an inlet patch, and normal squamous mucosa B: ESOPHAGUS, DISTAL, BIOPSY: 1. Squamous mucosa with nonspecific regenerative change, cannot exclude reflux CHIEF COMPLAINT: Follow up after EGDHISTORY OF PRESENT ILLNESS:Conner Rubio was seen today for a Virtual visit. Prior to beginning, the patient consented to the visit being held via online conferencing. It was confirmed that there were no additional people present for the visit and the patient was in a private place. Umair is a 40 year-old male who has had heartburn over the years. Over 10 years ago, he was waking up every morning with heartburn, so his doctor prescribed ranitidine. He took this every evening for a while, but over time, it wasn't working quite as well, so he started taking it twice daily. As time went on, this too, didn't seem to be working as well. He felt like his body just stopped responding to it so decided to quit cold turkey. Although he had significant heartburn in the short-term, this eventually resolved and he did ok for a while off meds. He went about 8 years or so without taking any antacids.In August or September of 2019, he woke up one night at 2 am after an episode of volume regurgitation. He started coughing nonstop. He had a similar cough a couple of years ago, where he got a whisker caught in his throat, and coughed for weeks until he was able to cough it back up. It then resolved. He thought this time, it would unfold in similar fashion, but it didn't. Shortly after this episode of regurgitation, he felt like something was stuck in his throat and his throat was a little bit sore, with some radiation of the pain up into his right ear. He was referred to ENT and had a laryngoscopy. He was told that he had an ulcer on the right side of his throat. By that point, he was taking Nexium 20 mg in the morning, and then ENT had him add Pepcid at bedtime. He eventually ran out of the Nexium and switched to Pepcid BID. He has also made a number of lifestyle modifications (not eating too close before bedtime, elevating the head of his bed.) He followed up with ENT and a repeat laryngoscopy demonstrated improvement. He was referred to GI and I recommended an EGD. This was unremarkable, as above. He remains on the Pepcid BID and symptoms and continues to do well with good control of his symptoms. He is considering tapering it down to once daily. In retrospect, he thinks some of this may have been related to sitting in his work truck with his head turned to the right toward his laptop. Now that he is on a new project and is sitting at a desk, it doesn't seem to be a problem any longer. GI Symptoms or Concerns PRIOR DI AGNOSTICS:-- CT neck scheduled for Saturday 04/07 at [facility] COMPLAINT: RefluxHISTORY OF PRESENT ILLNESS:I had a Televisit today with Conner Rubio. Prior to beginning, he consented to the visit being held via telephone. It was confirmed that there were no additional people present for the visit and that he was in a private place. Umair is a 40 year-old male who has had heartburn over the years. Over 10 years ago, he was waking up every morning with heartburn, so his doctor prescribed ranitidine. He took this every evening for a while, but over time, it wasn't working quite as well, so he started taking it twice daily. As time went on, this too, didn't seem to be working as well. He felt like his body just stopped responding to it so decided to quit cold turkey. Although he had significant heartburn in the short-term, this eventually resolved and he did ok for a while off meds. He has not been taking any antacids for the last 8 years or so. In August or September, he woke up on night at 2 am after an episode of volume regurgitation. He started coughing nonstop. He had a similar cough a couple of years ago, where he got a whisker caught in his throat, and coughed for weeks until he was able to cough it back up. It then resolved. He thought this time, it would unfold in similar fashion, but it didn't. Shortly after this episode of regurgitation, he felt like something was stuck in his throat and his throat was a little bit sore, with some radiation of the pain up into his right ear. He was referred to ENT and had a laryngoscopy. He was told that he had an ulcer on the right side of his throat. By that point, he was taking Nexium 20 mg in the morning, and then ENT had him add Pepcid at bedtime. He eventually ran out of the Nexium and switched to Pepcid BID. He has also made a number of lifestyle modifications (not eating too close before bedtime, elevating the head of his bed.) He followed up with ENT and a repeat laryngoscopy demonstrated improvement. He remains on the Pepcid BID and symptoms are currently well controlled. He has no heartburn unless he misses a dosage. He does have an occasional lump in his throat, but this comes / goes. There is no dysphagia. No odynophagia. His BMs are regular. No blood in stools. No black / tarry stools. Gained 35 pounds in last year.PAST MEDICAL HISTORYOSA, GERD, Anxiety, HLDPAST SURGICAL HISTORYTonsillectomy plannedHernia repairSOCIAL HISTORYRare cigar / cigarette2-3 alcoholic beverages / monthWorks for MNDOTFAMILY HISTORYSecond cousin had esophageal cancer, had esophagectomyMother had colon polyps, in her 60sMEDICATIONSatorvastatin 10 mg tabletcyclobenzaprine 10 mg tablet PRN when his back goes out, rarehydroxyzine HCl 25 mg tabletoxycodone 5 mg capsule PRN when his back goes out, rareCo [id number] E-Fish Oil 25 mg-150 (90-60) mg-200 unit capsuleFiber supplementationPepcid BID Functional Status Date Functional Assessmen t No Information Instructions Date Instruction Additional Infor mation No Information Assessments Type Assessment Date assessment Gastro-esophageal reflux disease without esophagitis impression 1. GERD. He has had symptoms of heartburn, sore throat, globus, and experienced an isolated episode of volume regurgitation, which occurred overnight. His symptoms are now well controlled on Pepcid BID. EGD was unremarkable. He can continue the Pepcid indefinitely or even taper to once daily or discontinue if symptoms allow.He can follow up with me as needed. Patient Care Teams Name Effective Dates (start - stop) Status Members No Information
== END 2022-12-02 22:22 | disposition home or self-care (01) ==
LOC: ED 22:16
PROVIDERS: Emergency Provider Family Medicine; PCP Family Medicine
DX: N30.01 Acute cystitis with hematuria (principal)
CPT/HCPCS: 81001; 87086; 99283; 99284; A9270

== ENCOUNTER 2023-04-25 13:39 | Emergency (ER) | payer BC, SELFPAY ==
[2023-04-25 13:55] VITALS: BP 143/85; PULSE 97; RESP 18; TEMP 36.4; O2SAT 96; BMI 47.1
[2023-04-25 14:35] LABS: Appearance Urine Clear (Clear); Bilirubin Urine Negative (Negative); Blood Urine Negative (Negative); Color Urine Yellow (Yellow); Glucose Urine Negative (Negative); Ketones Urine Negative (Negative); Leukocyte Esterase Urine Negative (Negative); Nitrite Urine Negative (Negative); Protein Urine Negative (Negative); Urobilinogen Urine 0.2 (0.2-1.0)
[2023-04-25 14:37] LABS: RBC Urine 0-2 (0-2); Squamous Epithelial Cell Urine Few (None-Few); WBC Urine 0-2 (0-5)
--- NOTE | 2023-04-25 14:37 | ED_ITS ---
HPI - Abdominal Pain General Chief Complaint: Abdominal Pain Stated Complaint: stomach pain. passing blood Time Seen by Provider: 04/25/23 14:14 History of Present Illness HPI narrative: This 43-year-old male comes in reporting left lower quadrant discomfort over the past week or 2. He states that it is kind of a tightness but not distinct pain. He has a history of diverticulosis is and has had an umbilical hernia repair. He does not have any fever, nausea, vomiting, or diarrhea. He does report a history of some constipation but has not been constipated recently. He states that he had some blood around the stool recently so he came in today for evaluation. He states that he is scheduled to have a colonoscopy at the beginning of next year which comes in a couple months from now. Related Data Home Medications Medication Instructions Recorded Confirmed atorvastatin 10 mg tablet 10 mg PO DAILY 08/02/22 04/25/23 hydroxyzine HCl 25 mg tablet mg 08/02/22 Previous Rx's Medication Instructions Recorded ciprofloxacin HCl 500 mg tablet 500 mg PO BID #28 tabs 12/02/22 Allergies Allergy/AdvReac Type Severity Reaction Status Date / Time No Known Drug Allergies Allergy Verified 04/25/23 15:39 Review of Systems Status of ROS Reports: 10 or more systems reviewed and unremarkable except as noted in History and below Narrative Constitutional: No fevers, no weight gain or loss. Eyes: No discharge. No vision changes. HENT: No congestion, no sore throat, no ear pain. Cardiovascular: No chest pain, no palpitations. Respiratory: No shortness of breath, no wheezes, no cough. Gastrointestinal: No vomiting, no diarrhea. Abdominal discomfort as described above. Genitourinary: No dysuria, no hematuria. Musculoskeletal: Normal range of motion. Skin: No rashes, no pruritis. Neurological: No dizziness, weakness, sensory change, speech change. Endo/Heme/Allergies: No bruising or bleeding. No polydipsia. Pysch: no suicidality, no anxiety, no insomnia. All other systems reviewed and are negative. [facility] Social History Smoking Status: Light tobacco smoker What tobacco products do you use: cigars Do you use any of these nicotine containing products: None Second hand tobacco smoke exposure: No How often do you have a drink containing alcohol: never How often do you have six or more drinks on one occasion: Never AUDIT-C Alcohol total score: 0 Non-prescribed substance use: denies use Exam Narrative: Exam Narrative: Constitutional: Well-developed, well-nourished, no acute distress. HEENT: Normocephalic, atraumatic. Neck: Normal range of motion. Nontender. Supple. Heart: Regular. No murmurs. Normal rate. Intact distal pulses. Lungs: Clear to auscultation. No chest discomfort. No wheezes, rhonchi, or rales. Abdomen: Normal bowel sounds. Mild tenderness in the left lower quadrant. No rebound tenderness. Genitalia: Deferred. Back: No midline tenderness. Normal range of motion. Extremities: Normal range of motion. No injury. Skin: Intact. No rash. Warm. No erythema or pallor. Neurologic: No altered sensation. No weakness. Alert and oriented. Psychiatric: No suicidality. No anxiety or depression. No insomnia. Nursing notes and vitals signs are reviewed. Const: Vital Signs, click to edit/add: Vital Signs - 24 hr 04/25/23 13:55 04/25/23 16:04 Temperature 97.6 F Pulse Rate [Pulse Oximeter] 97 75 Respiratory Rate 18 20 Blood Pressure [Ri ght Upper Arm] 143/85 H 140/83 H Pulse Oximetry 96 97 Oxygen Delivery Me thod Room Air Room Air Course Vital Signs Vital signs: Initial Vital Signs Temperature 97.6 F 04/25/23 13:55 Temperature Source Temporal Artery Scan 04/25/23 13:55 Pulse Rate 97 04/25/23 13:55 Respiratory Rate 18 04/25/23 13:55 Blood Pressure 143/85 H 04/25/23 13:55 Blood Pressure Mean 104 04/25/23 13:55 Blood Pressure Position Sitting 04/25/23 13:55 Pulse Oximetry 96 04/25/23 13:55 Oxygen Delivery Method Room Air 04/25/23 13:55 Vital Signs Temperature 97.6 F 04/25/23 13:55 Pulse Rate 97 04/25/23 13:55 Respiratory Rate 18 04/25/23 13:55 Blood Pressure 143/85 H 04/25/23 13:55 Pulse Oximetry 96 04/25/23 13:55 Oxygen Delivery Method Room Air 04/25/23 13:55 Temperature 97.6 F 04/25/23 13:55 Pulse Rate 75 04/25/23 16:04 Respiratory Rate 20 04/25/23 16:04 Blood Pressure 140/83 H 04/25/23 16:04 Pulse Oximetry 97 04/25/23 16:04 Oxygen Delivery Method Room Air 04/25/23 16:04 MDM - Abdominal Pain MDM Narrative Medical decision making narrative: This 43-year-old male is reporting some diffuse left lower quadrant discomfort as described above. His exam is rather normal. He does have a history of diverticulosis but not diverticulitis. He does report some blood streaking his stool today. A CT scan of the abdomen and pelvis is obtained and returns with evidence of diverticulosis but no diverticulitis. His appendix appears normal. I did inform him that there is a 1.4 cm hypodense lesion in the liver suggestive of fatty liver. The patient is scheduled to have a colonoscopy in the next couple months. He is okay to be discharged home. Lab Data Labs: Lab Results 04/25/23 04/25/23 Range/Units 14:05 15:10 WBC 8.48 (4.50-11.00) K/uL RBC 5.16 (4.30-5.90) m/uL Hgb 15.1 (13.5-17.5) gm/dL Hct 45.4 (37.0-53.0) % MCV 88 (80-100) fL MCH 29 (26-34) pg MCHC 33 (32-36) gm/dL RDW Coeff of Kevin 12.3 (11.5-15.5) % Plt Count 304 (140-440) K/uL Neut % (Auto) 67.0 (42.0-72.0) % Lymph % (Auto) 23.1 (20-44) % [place] % (Auto) 7.2 (0.0-11.0) % Eos % (Auto) 2.1 (0.0-7.0) % Baso % (Auto) 0.4 (0.0-3.0) % Neut # (Auto) 5.68 (1.7-7.0) K/uL Lymph # (Auto) 1.96 (0.90-2.90) K/uL [place] # (Auto) 0.60 (0.00-0.90) K/UL Eos # (Auto) 0.18 (0.00-0.50) K/uL Baso # (Auto) 0.03 (0.00-0.30) K/uL Abs Immat Gran (auto) 0.02 (0.00-0.30) K/uL Imm/Tot Granulo (auto) 0.2 % Sodium 140 (135-149) mmol/L Potassium 4.2 (3.6-5.1) mmol/L Chloride 106 (96-114) mmol/L Carbon Dioxide 24 (20-32) mmol/L Anion Gap 10 (7-15) mEq/L BUN 15 (5-24) mg/dL Creatinine 0.8 (0.5-1.5) mg/dL Estimated Creat Clear 125.47 Estimated GFR 114 ml/min Glucose 106 (60-115) mg/dL Calcium 9.2 (8.4-10.6) mg/dL Urine Color Yellow (Yellow) Urine Appearance Clear (Clear) Urine pH 6.0 (5.0-8.5) Ur Specific [place] 1.010 (1.000-1.030) Urine Protein Negative (Negative) Urine Glucose (UA) Negative (Negative) Urine Ketones Negative (Negative) Urine Blood Negative (Negative) Urine Nitrite Negative (Negative) Urine Bilirubin Negative (Negative) Urine Urobilinogen 0.2 (0.2-1.0) Ur Leukocyte Esterase Negative (Negative) Urine RBC 0-2 (0-2) Urine WBC 0-2 (0-5) Ur Squamous Epith Cells Few (None-Few) Urine Bacteria None (None) Imaging Data CT scan - abdomen: Radiologist's impression: 1. Scattered colonic diverticulosis, without evidence of acute diverticulitis. Normal appendix. 2. Indeterminate 1.4 cm hypodense lesion in segment 4B of the liver. This may reflect focal fatty infiltration. Recommend further evaluation with liver MRI, on a nonemergent basis. Discharge Plan Discharge Clinical Impression: Abdominal pain Patient Disposition: Home, Self-Care Condition: Stable Additional Instructions: Use [id number] medicines as needed and directed. Follow up with MD or return if worsening. Prescriptions: No Action atorvastatin 10 mg tablet 10 mg PO DAILY Patient Comments: TAKE ONE TABLET BY MOUTH ONE TIME DAILY hydroxyzine HCl 25 mg tablet Patient Comments: TAKE ONE OR TWO TABLETS BY MOUTH THREE TIMES DAILY NEEDED FOR ANXIETY ciprofloxacin HCl 500 mg tablet 500 mg PO BID Qty: 28 0RF Follow Up/Referrals: Chuck Vanessa MD [Primary Care Provider] - Stand Alone Forms: [employer] Info Instructions
--- NOTE | 2023-04-25 14:37 | CRLHL7_ITS ---
For Patients: As a result of the Century Cures Act, medical imaging exams and procedure reports are released immediately into your electronic medical record. You may view this report before your referring provider. If you have questions, please contact your health care provider. INDICATION: Left lower quadrant pain. TECHNIQUE: CT abdomen and pelvis acquired with 150 mL Isovue 370 IV contrast. COMPARISON: None. FINDINGS: Lower chest: No focal consolidation. Liver: Ill-defined 1.4 cm hypodense lesion in segment 4B (series 2, image 40). Gallbladder and bile ducts: Unremarkable. Pancreas: Unremarkable. Spleen: Unremarkable. Adrenal glands: Unremarkable. Kidneys: Kidneys enhance symmetrically, without hydronephrosis. Retroperitoneum: No lymphadenopathy. Bowel and mesentery: Bowel is not obstructed. No significant ascites. No pneumoperitoneum. Scattered colonic diverticulosis, without evidence of acute diverticulitis. Normal appendix. Bladder: Unremarkable for degree of distension. Reproductive organs: Unremarkable. Pelvic lymph nodes: No lymphadenopathy. Vessels: Unremarkable. Abdominal wall: No acute abdominal wall abnormality. Bones: Multilevel degenerative changes of the spine. No suspicious/aggressive focal osseous lesion. IMPRESSION: 1. Scattered colonic diverticulosis, without evidence of acute diverticulitis. Normal appendix. 2. Indeterminate 1.4 cm hypodense lesion in segment 4B of the liver. This may reflect focal fatty infiltration. Recommend further evaluation with liver MRI, on a nonemergent basis. Please note that all CT scans at this facility use dose modulation, iterative reconstruction, and/or weight-based dosing when appropriate to reduce radiation dose to as low as reasonably achievable. Dictated by Alexandre Davila MD @ 04/25/2023 4:37:08 PM (Electronically Signed)
[2023-04-25 15:20] LABS: Basophils Absolute Auto 0.03 K/uL (0.00-0.30); Basophils Percent Auto 0.4 % (0.0-3.0); Eosinophils Absolute Auto 0.18 K/uL (0.00-0.50); Eosinophils Percent Auto 2.1 % (0.0-7.0); Hematocrit 45.4 % (37.0-53.0); Hemoglobin* 15.1 gm/dL (13.5-17.5); Immature Granulocytes Abs Auto 0.02 K/uL (0.00-0.30); Immature Granulocytes Pct Auto 0.2 %; Lymphocytes Absolute Auto 1.96 K/uL (0.90-2.90); Lymphocytes Percent Auto 23.1 % (20-44); Mean Corpuscular HGB Conc 33 gm/dL (32-36); Mean Corpuscular Hemoglobin 29 pg (26-34); Mean Corpuscular Volume 88 fL (80-100); Monocytes Percent Auto 7.2 % (0.0-11.0); Neutrophils Absolute Auto 5.68 K/uL (1.7-7.0); Platelet Count* 304 K/uL (140-440); RDW Coefficient of Variation % 12.3 % (11.5-15.5); Red Blood Count 5.16 m/uL (4.30-5.90); White Blood Count* 8.48 K/uL (4.50-11.00)
[2023-04-25 15:37] LABS: Chloride* 106 mmol/L (96-114); Slide Review Reflex No; Sodium* 140 mmol/L (135-149)
[2023-04-25 15:38] LABS: Potassium* 4.2 mmol/L (3.6-5.1)
[2023-04-25 15:40] LABS: Anion Gap 10 mEq/L (7-15); Carbon Dioxide* 24 mmol/L (20-32); Creatinine* 0.8 mg/dL (0.5-1.5); Est. Creatinine Clearance* 125.47; Estimated Glomerular Filt Rate 114 ml/min
[2023-04-25 15:41] LABS: Blood Urea Nitrogen* 15 mg/dL (5-24); Calcium* 9.2 mg/dL (8.4-10.6); Glucose* 106 mg/dL (60-115)
[2023-04-25 16:04] VITALS: BP 140/83; PULSE 75; RESP 20; O2SAT 97
== END 2023-04-25 17:00 | disposition home or self-care (01) ==
PROVIDERS: Emergency Provider Emergency Medicine Emergency Medical Services; PCP Family Medicine
DX: R10.32 Left lower quadrant pain (principal)
CPT/HCPCS: 36415; 74177; 80048; 81001; 85025; 99283; 99284; Q9967

== ENCOUNTER 2023-10-17 12:21 | Outpatient (CLI) | payer BC, SELFPAY ==
--- OUTSIDE RECORDS SUMMARY | 2023-10-17 12:24 | XMS_ITS | Clinical Summary ---
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 0 06/28/2022 Active CPAPIndications:MATTIE (obstructive sleep apnea) CPAP machine for home use at pressure 8.8cm/H2O, full face mask x1/3month with a full face cushion x1/mo 1 Each 11 08/30/2022 Active hydrocortisone 2.5% creamIndications:Janett fissure Apply topically to affected area(s) two times daily. 30 g 09/09/2022 Active Additional Information Patient taking differently:TopicalQID PRN, Itching, Reported on 09/17/2023 cyclobenzaprine (FLEXERIL) 10 mg tabletIndications:Ne ck pain,Numbness and tingling Take 1 Tablet (10 mg) by mouth at bedtime if needed for Muscle Spasm. 30 Tablet 2 07/15/2023 Active atorvastatin (LIPITOR) 10 mg tabletIndications:Ot her hyperlipidemia Take 1 Tablet (10 mg) by mouth once daily. 90 Tablet 3 07/15/2023 Active buPROPion (WELLBUTRIN XL) 150 mg Extended-Release tabletIndications:An xiety state Take 1 Tablet (150 mg) by mouth every morning. 90 Tablet 3 07/15/2023 Active hydrOXYzine HCL (ATARAX) 25 mg tabletIndications:An xiety Take 1-2 Tablets (25-50 mg) by mouth 3 times daily if needed for Anxiety. 60 Tablet 2 07/15/2023 Active Sulfacetamide Sodium 10 % clsrIndications:Acne , unspecified acne type Use every other day in shower. 177 mL 11 07/15/2023 Active Additional Information Patient taking differently: DAILY PRN, Use every other day in shower., Reported on 09/17/2023 polyethylene glycol-electrolyte (GOLYTELY) 236-22.74-6.74 -5.86 gram suspensionIndication s:Family history of colonic polyps Drink 2 liters the day before colonoscopy and 2 liters 6 hours before colonoscopy appointment 4000 mL 10/10/2023 Active esomeprazole (NexIUM 24HR) 20 mg capsule Take 20 mg by mouth once daily. Active cephalexin (KEFLEX) 500 mg capsuleIndications:U rinary tract infection symptoms,UTI (urinary tract infection), uncomplicated Take 1 Capsule (500 mg) by mouth two times daily for 10 days. 20 Capsule 09/10/2023 4 ciprofloxacin HCl (CIPRO) 500 mg tabletIndications:Pr ostatitis, acute Take 1 Tablet (500 mg) by mouth two times daily for 14 days. 28 Tablet 09/17/2023 4 Active Problems Problem Noted Date Diagnosed Date Family history of colonic polyps 12/31/2022 Overview: His brother had a polyp PVC (premature ventricular contraction) 06/28/19 23 Overview: This was diagnosed at [facility] in about 04/2022 Other acne 05/19/2022 Morbid obesity with BMI of 45.0-49.9, adult 12/11 MATTIE 04/2016 AHI-24 (previous was 78 in 2010) 10/2015 Sleep apnea 03/23/2016 left wrist ECU tendonitis 06/21/2014 Rotator cuff tendonitis of left shoulder 014 Hyperlipidemia 05/09/2013 Deviated nasal septum 11/10/2012 GERD (gastroesophageal reflux disease) 9 Anxiety state, unspecified 05/30/2007 Resolved Problems Problem Noted Date Diagnosed Date Resolved Date Left wrist injury 06/03/2014 09/09/2022 Encounters Date Type Department Care Team Description 10/12/[address] [facility] [address] [facility] [place] [address] Hermilo Acosta MD Questions (COLONOSCOPY PREP) 09/28/2023 9:40 AM CDT Preop Visit [facility] [address] [place] [address] Chuck Vanessa MD Preoperative Exam (10/17/23 colonoscopy /[facility]/Dr. Acosta) 09/28/2023 Travel 09/17/2023 12:50 PM CDT Office Visit [facility] [address] [place] [address] Cydney Galan NP UTI (Unresolved UTI symptoms; unresolved lower abdominal tenderness, flank pain since 09/08/2023. Treated on 09/10/23 at [facility] for UTI with keflex x 10 days. Patient is actively taking abx, but feel these symptoms have worsened. Penile discharge has since resolved, and patient no longer has burning upon urination. ) 09/17/2023 Travel 09/10/2023 9:25 AM CDT Office Visit [facility] [address] [place] [address] Dima Scruggs PA Dysuria (Patient presents to urgent care today with C/O having dysuria. He has had a few UTIs in the past. /) 09/10/2023 Travel 08/18/[address] [facility] [address] [facility] [place] [address] Chuck Vanessa MD colonoscopy 08/02/2023 8:56 AM ALCOHOLIC COUNSELOR - 08/02/2023 11:59 PM ALCOHOLIC COUNSELOR Hospital Encounter [facility] [address] [place] [address] Chuck Vanessa MD Other hyperlipidemia 08/02/2023 Travel from Last 3 Months Immunizations Name Administration Dates Next Due COVID-19 vaccine (Angelo-J& J) PF, MDV 04/04/2021 Covid-19 Vaccine (Novavax) Pf, MDV 05/01/2022 Influenza, IIV3 (Age >=3 years) 07/17/2013,03/16 Influenza, IIV4 03/10/2023,,05/01/2020, 019,03/17/2017,03/22/2016,03/13/2015,07/2013 Influenza, IIV4 (=>6mos) MDV 04/17/2016 Tdap 07/15/2023,01/07/2012 01/06/2022 Family History Medical History Relation Name Comments Colon polyps Brother Heart Disease Maternal Grandmother Early age Cancer Paternal Grandfather Relation Name Status Comments Brother Maternal Grandmother Paternal Grandfather Social History Tobacco Use Types Packs/Day Years Used Date Smoking Tobacco: Former Cigars Q uit: 06/13/2005 Smokeless Tobacco: Never Tobacco Cessation:Counseling Given: Yes Comments:3-4 cigars per year -noted 07/03/21 Alcohol Use Standard Drinks/Week Comments Yes 0 (1 standard drink = 0.6 oz pur e alcohol) rare, 1 drink monthly or less PHQ-2 Answer Date Recorded PHQ-2 TOTAL SCORE 1 07/15/2023 Social Connections Answer Date Recorded Frequency of Communication with Friends and Fami ly 0 02/18/2023 Alcohol Use Answer Date Recorded How often do you have a drink containing alcohol ? 1 09/28/2023 How many drinks containing a lcohol do you have on a typical day when you are drinking? 0 09/28/2023 How often do you have five or more drinks on one occasion? 0 09/28/2023 Financial Resource Strain Answer Date R ecorded Difficulty of Paying Living Expenses 3 02/18/2023 Difficulty of Paying Living Expenses Not on file 02/18/2023 Food Insecurity Answer Date Recorded Worried About Running Out of Food in the Last Ye ar 1 02/18/2023 Transportation Needs Answer Date Record ed Lack of Transportation (Medical) 1 02/18/2023 Housing Stability Answer Date Recorded Unable to Pay for Housing in the Last Year 1 02/18/2023 Sex and Gender Information Value Date Recorded Sex Assigned at Male 05/01/2020 9:41 AM ALCOHOLIC COUNSELOR Gender Identity Male 05/01/2020 9:41 AM ALCOHOLIC COUNSELOR Sexual Orientation Straight 05/01/2020 9: 41 AM ALCOHOLIC COUNSELOR Obstetrics History Last Filed Vital Signs Vital Sign Reading Time Taken Comments Blood Pressure 132/80 09/28/2023 9:54 AM CDT Pulse 67 09/28/2023 9:54 AM CDT Temperature 36.3 ??C (97.4 ??F) 09/28/2023 9:54 AM CD T Respiratory Rate 18 09/17/2023 1:04 PM CDT Oxygen Saturation 96% 09/28/2023 9:54 AM CDT Inhaled Oxygen Concentration - - Weight 144.3 kg (318 lb 3.2 oz) 09/28/2023 9:54 AM CDT Height 179.1 cm (5' 10.5) 09/28/2023 9:54 AM CD T Body Mass Index 45.01 09/28/2023 9:54 AM CDT Plan of Treatment Health Maintenance Due Date Last Done Comments HIV for age 15-65 1997 COVID-19 vaccine series (2022- season) 2023 05/01/2022, 04/04/2021 Influenza for age 9-49 02/12/2024 , 03/11/2022, 05/01/2020, Additional history exists Depression screening for age 12+ 07/15/2024 07/15/2023, 02/18/2023, 06/28/2022, Additional history exists BMI (ht and wt on same day) for age 18+ 09/27/2024 09/28/2023, 07/15/2023, 02/18/2023, Additional history exists Lipids for age 35-44 01/01/2028 12/31/2022, 07/19/2022, 01/19/2021, Additional history exists Tetanus booster 07/15/2033 07/15/2023, 01/07/2012 Hepatitis C screening for age 18-79 Completed 02/08/2022 Tdap Completed 07/15/2023, 01/07/2012 Pneumococcal series for age 6-64 Aged Out No longer eligible based on patient's age to complete this topic Procedures Procedure Name Priority Date/Time Associated Diagnosis Comments COLONOSCOPY SCREENING Routine 10/17/2023 8:01 AM CDT Family history of colonic polyps URINE CULTURE STAT 09/17/2023 1:08 PM CDT Urinary tract infection symptoms UA W/ SEDIMENT EXAM REFLEXED PER CRITERIA STAT 09/17/2023 1:08 PM CDT Urinary tract infection symptoms URINALYSIS MICROSCOPIC STAT 09/10/2023 9:20 AM CDT Urinary tract infection symptoms UA W/ SEDIMENT EXAM REFLEXED PER CRITERIA STAT 09/10/2023 9:20 AM CDT Urinary tract infection symptoms CT CARDIAC CALCIUM SCORE ONLY WO SINGLE READ Routine 08/02/2023 8:59 AM ALCOHOLIC COUNSELOR Other hyperlipidemia LIPID PANEL W REFLEX MEASURED LDL Routine 12/31/2022 12:00 PM CDT Other hyperlipidemia ANTI HCV Routine 02/08/2022 11:45 AM CDT Need for hepatitis C screening test from Last 3 Months or Most Recently Relevant to Health Maintenance Results * URINE CULTURE [10244.2] (09/17/2023 1:08 PM CDT) CULTURE No growth (<1,000 CFU/mL) 09/19/2023 1:49 PM CDT [facility] Urine URINE SPECIMEN / Unknown Non-Blood / Unknown 09/17/2023 1:08 PM CDT 09/17/2023 1:11 PM CDT Lauren Serrano NP MICROBIOLOGY [facility] [address] [place] [address], * UA W/ SEDIMENT EXAM REFLEXED PER CRITERIA (UA w/ reflex micro if positive) [44070.2] (09/17/2023 1:08 PM CDT) Only the most recent of2 resultswithin the time period is included. COLOR Yellow Yellow Color 09/17/2023 1:17 PM [facility] CLARITY Clear Clear Clarity 09/17/2023 1:17 PM [facility] SPECIFIC GRAVITY,URINE 1.010 1.010, 1.015, 1.020, 1.025 09/17/2023 1:17 PM [facility] PH,URINE 6.0 6.0, 7.0, 8.0, 5.5, 6.5, 7.5, 8.5 09/17/2023 1:17 PM [facility] UROBILINOGEN, QUALITATIVE Normal Normal EU/dl 09/17/2023 1:17 PM [facility] PROTEIN, URINE Negative Negative mg/dL 09/17/2023 1:17 PM [facility] GLUCOSE, URINE Negative Negative mg/dL 09/17/2023 1:17 PM [facility] KETONES,URINE Negative Negative mg/dL 09/17/2023 1:17 PM [facility] BILIRUBIN,URI NE Negative Negative 09/17/2023 1:17 PM [facility] OCCULT BLOOD,URINE Negative Negative 09/17/2023 1:17 PM [facility] NITRITE Negative Negative 09/17/2023 1:17 PM [facility] LEUKOCYTE ESTERASE Negative Negative 09/17/2023 1:17 PM [facility] Urine URINE SPECIMEN / Unknown Non-Blood / Unknown 09/17/2023 1:08 PM CDT 09/17/2023 1:11 PM T Lauren Serrano NP URINE [facility] [address] [place] [place], [place] [id number] * URINALYSIS MICROSCOPIC (09/10/2023 9:20 AM T) RBC 0-2 0-2, None Seen /HPF 09/10/2023 9:44 AM T [facility] WBC 0-2 0-2, 3-5, None Seen /HPF 09/10/2023 9:44 AM CDT [facility] BACTERIA Rare None Seen, Rare, Few Bacteria/H PF 09/10/2023 9:44 AM CDT [facility] EPITHELIAL CELLS Few None Seen, Few Epi/HPF 09/10/2023 9:44 AM CDT [facility] Mucus Present 09/10/2023 9:44 AM CDT [facility] Urine URINE SPECIMEN / Unknown Non-Blood / Unknown 09/10/2023 9:20 AM CDT 09/10/2023 9:30 AM CDT Ely Shah NP URINE [facility] [address] [place] [address] * CT CARDIAC CALCIUM SCORE ONLY WO SINGLE READ (08/02/2023 8:59 AM ALCOHOLIC COUNSELOR) Anatomical Region Laterality Modality Computed Tomogra phy Impressions 08/03/2023 6:22 AM ALCOHOLIC COUNSELOR ??The coronary artery calcium score of 3.1 is consistent with minimal identifiable calcification. Recommend appropriate wrists management. Please note that all CT scans at this facility use dose modulation, iterative reconstruction and/or weight-based dosing when appropriate to reduce radiation dose to as low as reasonably achievable. ?? Dictated by Diamond Tanner MD @ 08/02/2023 9:31:07 AM Signed by: Diamond Tanner MD @08/02/2023 9:31:07 AM (Electronic Signature) Narrative 08/03/2023 6:22 AM ALCOHOLIC COUNSELOR Table formatting from the original result was not included. For Patients: As a result of the Century Cures Act, medical imaging exams and procedure reports are released immediately into your electronic medical record. ??You may view this report before your referring provider. ?? If you have questions, please contact your health care provider. CT CARDIAC CALCIUM SCORING, 08/02/2023 PATIENT HISTORY: ??Screening for CAD risk. REPORT: ??High-resolution, ECG-synchronized computed tomography of the heart with attention to the coronary arteries was performed using Siemens ShelfX CT. Coronary calcification analyzed using Siemens calcium scoring software. These are the results of the evaluation: Artery Number of Lesions Volume Equiv. Mass Calcium Score LM 0 0.0 0.00 0.0 LAD 2 0.7 0.24 0.8 CX 0 0.0 0.00 0.0 RCA 3 4.6 0.78 2.3 TOTAL 5 5.2 1.02 3.1 Threshold: ??130 HU ??(102.7 mg/cm3 CaHA) *) Calibration factor: 0.790 mg/(HUcm3) CaHA The Computed Tomography of the coronary arteries detected coronary calcifications. ??According to the current state of knowledge (O'Sejal, Circulation 2000; 102:126), coronary calcifications are a marker for coronary atherosclerosis. ??The more calcium is detected, the higher is the likelihood for an obstructive coronary disease. ??However, there is no unique relationship between the amount of detected calcium and the extent or localization of this disease. ??The amount of calcium is closely correlated with the extent of coronary atherosclerosis, although the true plaque burden is underestimated. ??With a high amount of coronary calcium, a moderate to high risk of a cardiovascular event within the next 2 to 5 years can be assumed. ?? No Identifiable Calcification Minimal Identifiable Calcification Mild Calcification Moderate Calcification Significant Calcification 0 1-10 11-100 101-400 401 and above (Following [place] Clin Proc. 1999;74(3):243-252) COMMENT: ??Visible lung eubanks are clear. Heart size normal. Chuck Vanessa MD CT * LIPID PANEL W REFLEX MEASURED LDL (12/31/2022 12:00 PM CDT) [facility] CHOLESTEROL,TOTAL 182 100 - 199 mg/dL 01/01/2023 2:02 AM T [facility] [employer] Comment: Cholesterol, Total Reference Ranges Desirable <200 mg/dL Borderline 200-239 mg/dL High >=240 mg/dL TRIGLYCERIDES 128 <150 mg/dL 01/01/2023 2:02 AM T [facility] HDL CHOLESTEROL 43 >40 mg/dL 3 2:02 AM [facility] NON-HDL CHOLESTEROL 139 <145 mg/dl 01/01/2023 2:02 AM CDT [facility] CHOL/HDL RATIO 4.23 <4.50 01/01/2023 2:02 AM CDT [facility] LDL CHOLESTEROL 113 <=130 mg/dL 01/01/2023 2:02 AM CDT [facility] VLDL CHOLESTEROL 26 <=30 mg/dL 01/01/2023 2:02 AM CDT [facility] PROVIDER ORDERED STATUS RANDOM 01/01/2023 2:02 AM CDT [facility] Blood BLOOD SPECIMEN / Unknown Venipuncture / Unknown 12/31/2022 12:00 PM CDT 12/31/2022 12:00 PM CDT Chuck Vanessa MD CHE[facility]STRY [facility] [address] [place] [address], [place] * ANTI HCV (02/08/2022 11:45 AM CDT) HEPATITIS C ANTIBODY Non-React miki Non-React miki 02/09/2022 4:30 AM CDT [facility] Comment:Antibodies to HCV no t detected; does not exclude the possibility of exposure to HCV. Blood BLOOD SPECIMEN / Unknown Venipuncture / Unknown 02/08/2022 11:45 AM CDT 02/08/2022 11:45 AM CDT Chuck Vaenssa MD SEND OUTS [facility] [address] [place] [address], [place] from Last 3 Months or Most Recently Relevant to Health Maintenance Care Teams Food Bagging Machine Operator Relationship Specialty Start Date End Date Chuck Vanessa MD [address] [place] [address] PCP - General 12/17/05
--- NOTE | 2023-10-17 13:36 | W.ANESCHARGE ---
Anesthesia Charges Start Date/Time Anesthesia Start Date: 10/17/23 Anesthesia Start Time: 13:31 Stop Date/Time Anesthesia Stop Date: 10/17/23 Anesthesia Stop Time: 14:06
--- NOTE | 2023-10-17 14:13 | W.ANESCHARGE ---
Anesthesia Charges Start Date/Time Anesthesia Start Date: 10/17/23 Anesthesia Start Time: 13:31 Stop Date/Time Anesthesia Stop Date: 10/17/23 Anesthesia Stop Time: 14:06
== END 2023-10-17 12:22 | disposition home or self-care (01) ==
LOC: OP CLINIC 12:22
PROVIDERS: PCP Family Medicine; Visit Provider Internal Medicine Gastroenterology
DX: Z12.11 Encounter for screening for malignant neoplasm of colon (principal); K63.5 Polyp of colon; Z83.719 Family history of colon polyps, unspecified
CPT/HCPCS: 45385; 811; 88305; J2704

== ENCOUNTER 2024-04-22 21:03 | Emergency (ER) | payer BC, SELFPAY ==
[2024-04-22 21:07] VITALS: BP 154/85; PULSE 76; RESP 16; TEMP 36.2; O2SAT 100; BMI 45.9
--- NOTE | 2024-04-22 21:27 | CRLHL7_ITS ---
For Patients: As a result of the Century Cures Act, medical imaging exams and procedure reports are released immediately into your electronic medical record. You may view this report before your referring provider. If you have questions, please contact your health care provider. INDICATION: Shortness of breath. TECHNIQUE: Chest 2 views. COMPARISON: None. FINDINGS: Cardiovascular and mediastinum: Heart size is normal. Unremarkable mediastinum. Lungs and pleural spaces: Lungs are clear. No sign of infiltrate or mass. No sign of pleural effusion. No pneumothorax. Bones and soft tissues: No significant findings. IMPRESSION: Negative chest. Dictated by Dashawn Saez MD @ 04/22/2024 11:09:47 PM (Electronically Signed)
--- NOTE | 2024-04-22 21:28 | ED.GENADULT ---
HPI - General Adult General Chief complaint: Chest Pain Stated complaint: anxiety Time Seen by Provider: 04/22/24 21:05 Source: patient Mode of arrival: ambulatory Limitations: no limitations History of Present Illness HPI narrative: 44-year-old male presenting today with chest pain. Patient states that approximately 2 hours ago he was walking around like he by the time he got back to his car he sat down and started feeling very hot. He began sweating profusely and felt a left-sided chest pain that radiated into his left back and arm. He states that he has had similar episodes in the past when he has panic attacks. However the difference this time was that the sweating was much more pronounced. He states that the discomfort lingers and he often goes to the chiropractor to get it adjusted in then the pain goes away. He feels the same way now and describes the left-sided chest pain as a 1/10. He is no longer diaphoretic. He denies feeling short of breath. He denies dizziness or lightheadedness. He did take 324 mg of aspirin prior to arriving here today ?just in case?. Patient does have a significant history of anxiety. He also took 2 hydroxyzine prior to coming in states that he is feeling much more relaxed now. Patient states that he had a recent calcium score which was very good, has never had a stress test. Maternal grandmother had coronary artery disease and in her 60s. Patient has a history of anxiety, PVCs, hyperlipidemia, obesity, obstructive sleep apnea with CPAP use. Related Data Home Medications ?Medication ?Instructions ?Recorded ?Confirmed atorvastatin 10 mg tablet 10 mg PO DAILY 08/02/22 04/25/23 hydroxyzine HCl 25 mg tablet mg 08/02/22 Previous Rx's ?Medication ?Instructions ?Recorded ciprofloxacin HCl 500 mg tablet 500 mg PO BID #28 tabs 12/02/22 Allergies Allergy/AdvReac Type Severity Reaction Status Date / Time No Known Drug Allergies Allergy Verified 04/25/23 15:39 Review of Systems Status of ROS: Reports: 10 or more systems reviewed and unremarkable except as noted in History and below [facility] Social History Smoking Status: Light tobacco smoker What tobacco products do you use: cigars Do you use any of these nicotine containing products: None Second hand tobacco smoke exposure: No How often do you have a drink containing alcohol: never How often do you have six or more drinks on one occasion: Never AUDIT-C Alcohol total score: 0 Non-prescribed substance use: denies use service: No Exam Narrative: Exam Narrative: Obese, well-developed patient in no acute distress. Alert and oriented. Answers questions appropriately. Mood and affect are appropriate. Thoughts are goal oriented and rational. No tangential or magical thinking noted. Patient speaks in full sentences without needing to catch his breath. Appears to be in good spirits. HEENT: Normocephalic atraumatic. Pupils are equally round reactive to light. Extraocular muscles are intact. Conjunctivae are moist without any icterus noted. Moist mucous membranes. Posterior pharynx is normal. Neck is soft without any lymphadenopathy or thyromegaly. No masses are appreciated. Cardiovascular: Heart is regular rate and rhythm S1 and S2 are present without any murmurs. Lungs: Clear to auscultation bilaterally no wheezes rhonchi or rales are appreciated. Patient takes deep breaths without any discomfort. Abdomen: Protuberant and soft with normal bowel sounds. Extremities: Bilateral lower extremities are without edema. Normal DP and PT pulses. Skin: Well perfused. Const: Vital Signs, click to edit/add: Vital Signs - 24 hr 04/22/24 21:07 04/22/24 21:44 04/22/24 22:58 Temperature 97.2 F L Pulse Rate [Left P ulse Oximeter] 76 65 Respiratory Rate 16 16 Blood Pressure [Ri ght Upper Arm] 154/85 H 113/56 L Pulse Oximetry 100 98 98 Oxygen Delivery Me thod Room Air Room Air Course Course ED Course: EKG, read by me, shows normal sinus rhythm with sinus arrhythmia and PVCs, pulse 76. Workup was unremarkable. Normal troponin. Chest x-ray, read by me, shows no acute pathology. Patient was feeling better after observation. No more chest pain, shortness of breath and no more episodes of diaphoresis. Repeat troponin Repeat EKG was unchanged showing sinus rhythm, frequent PVCs with a pulse of 77. Vital Signs Vital signs: Initial Vital Signs Temperature 97.2 F L 04/22/24 21:07 Temperature Source Temporal Artery Scan 04/22/24 21:07 Pulse Rate 76 04/22/24 21:07 Pulse Rhythm Regular 04/22/24 21:07 Respiratory Rate 16 04/22/24 21:07 Blood Pressure 154/85 H 04/22/24 21:07 Blood Pressure Mean 108 H 04/22/24 21:07 Blood Pressure Position Sitting 04/22/24 21:07 Pulse Oximetry 100 04/22/24 21:07 Oxygen Delivery Method Room Air 04/22/24 21:07 Vital Signs Temperature 97.2 F L 04/22/24 21:07 Pulse Rate 76 04/22/24 21:07 Respiratory Rate 16 04/22/24 21:07 Blood Pressure 154/85 H 04/22/24 21:07 Pulse Oximetry 100 04/22/24 21:07 Oxygen Delivery Method Room Air 04/22/24 21:07 Temperature 97.2 F L 04/22/24 21:07 Pulse Rate 65 04/22/24 22:58 Respiratory Rate 16 04/22/24 22:58 Blood Pressure 113/56 L 04/22/24 22:58 Pulse Oximetry 98 04/22/24 22:58 Oxygen Delivery Method Room Air 04/22/24 22:58 Medical Decision Making [facility] Narrative Medical decision making narrative: 44-year-old male with an episode of chest discomfort diaphoresis similar to previous panic episodes in the past. I do think that this was the same thing that happened to him today. I do not see any evidence of coronary artery disease. Given that he is not tachycardic, not acutely short of breath, and not hypoxic, per the PERC rule is likelihood of PE is very low at less than 2%. There is no evidence of a pneumothorax, myocarditis, pericarditis, pneumonia. Again, with the resolution of his symptoms I do not think something more serious is going on such as an aortic dissection. Patient does have a lot of PVCs. I spoke to him about a Zio patch to determine his PVC burden. He states that this is a conversation he has had with his provider in the past and as of this point they have decided against it. Lab Data Lab results reviewed: Yes I reviewed the patient's lab results Labs: Lab Results 04/22/24 04/22/24 Range/Units 21:39 21:44 WBC 10.27 (4.50-11.00) K/uL RBC 4.96 (4.30-5.90) m/uL Hgb 14.3 (13.5-17.5) gm/dL Hct 44.2 (37.0-53.0) % MCV 89 (80-100) fL MCH 29 (26-34) pg MCHC 32 (32-36) gm/dL RDW Coeff of Kevin 12.2 (11.5-15.5) % Plt Count 277 (140-440) K/uL Neut % (Auto) 72.0 (42.0-72.0) % Lymph % (Auto) 18.1 L (20-44) % [place] % (Auto) 7.3 (0.0-11.0) % Eos % (Auto) 2.0 (0.0-7.0) % Baso % (Auto) 0.2 (0.0-3.0) % Neut # (Auto) 7.39 H (1.7-7.0) K/uL Lymph # (Auto) 1.90 (0.90-2.90) K/uL [place] # (Auto) 0.70 (0.00-0.90) K/UL Eos # (Auto) 0.21 (0.00-0.50) K/uL Baso # (Auto) 0.02 (0.00-0.30) K/uL Abs Immat Gran (auto) 0.04 (0.00-0.30) K/uL Imm/Tot Granulo (auto) 0.4 % Sodium 138 (135-149) mmol/L Potassium 3.7 (3.6-5.1) mmol/L Chloride 102 (96-114) mmol/L Carbon Dioxide 28 (20-32) mmol/L Anion Gap 8 (7-15) mEq/L BUN 16 (5-24) mg/dL Creatinine 0.8 (0.5-1.5) mg/dL Estimated Creat Clear 124.20 Estimated GFR 113 ml/min Glucose 147 H (60-115) mg/dL Lactate 2.0 H (0.5-1.9) mmol/L Calcium 8.6 (8.4-10.6) mg/dL Magnesium 2.2 (1.5-2.6) mg/dL Total Bilirubin 0.1 (0.1-1.5) mg/dL Direct Bilirubin 0.1 (0.0-0.5) mg/dL AST 28 (12-35) U/L ALT 38 (4-50) U/L Alkaline Phosphatase 80 (40-150) U/L Troponin I < 0.01 L (0.01-0.04) ng/mL C-Reactive Protein 0.6 (0.5-1.0) mg/dL Total Protein 7.2 (6.0-8.3) g/dL Albumin 4.2 (3.3-5.0) g/dL TSH 1.640 (0.270-4.20) uIU/mL POC Troponin I 0.01 (0.01-0.04) ng/ml Imaging Data Chest x-ray: Attestation: I have reviewed the pertinent imaging results. Radiologist's impression: Chest 2 views. COMPARISON: None. FINDINGS: Cardiovascular and mediastinum: Heart size is normal. Unremarkable mediastinum. Lungs and pleural spaces: Lungs are clear. No sign of infiltrate or mass. No sign of pleural effusion. No pneumothorax. Bones and soft tissues: No significant findings. IMPRESSION: Negative chest. ECG Data Attestation: I personally reviewed and interpreted this ECG as follows: Discharge Plan Discharge Clinical Impression: Atypical chest pain, Anxiety Additional Instructions: Follow-up with your primary care provider as needed. Recommend speaking with him again about potentially doing a heart monitor to evaluate your PVC burden. They were very frequent while you were in the ER today. Prescriptions: No Action atorvastatin 10 mg tablet 10 mg PO DAILY Patient Comments: TAKE ONE TABLET BY MOUTH ONE TIME DAILY hydroxyzine HCl 25 mg tablet Patient Comments: TAKE ONE OR TWO TABLETS BY MOUTH THREE TIMES DAILY NEEDED FOR ANXIETY ciprofloxacin HCl 500 mg tablet 500 mg PO BID Qty: 28 0RF Follow Up/Referrals: Chuck Vanessa MD [Primary Care Provider] - Stand Alone Forms: MyHealth Info Instructions
--- OUTSIDE RECORDS SUMMARY | 2024-04-22 21:33 | XMS_ITS | Clinical Summary ---
Author Organization [facility] Address [place], [place] [address] Care Team Providers Care Mortgage Operations Manager Name Role Phone Chuck Vanessa MD Primary Care Provider [phone] Allergies No known active allergies Medications Medication [...] every morning. 90 Tablet 3 07/15/2023 Active Sulfacetamide Sodium 10 % clsrIndications:Acne , unspecified acne type Use every other day in shower. 177 mL 11 07/15/2023 Active Additional Information Patient taking differently: DAILY PRN, Use every other day in shower., Reported on 09/17/2023 esomeprazole (NexIUM 24HR) 20 mg capsule Take 20 mg by mouth once daily. Active nitrofurantoin macrocrystaL (MACRODANTIN) 100 mg capsuleIndications:R ecurrent UTI Take 1 pill after relations 30 Capsule 3 12/23/2023 Active hydrOXYzine HCL (ATARAX) 25 mg tabletIndications:An xiety Take 1-2 Tablets (25-50 mg) by mouth 3 times daily if needed for Anxiety. 60 Tablet 6 12/23/2023 Active amoxicillin-clavulan ate (AUGMENTIN) 875-125 mg tabletIndications:Ac [place] non-recurrent pansinusitis Take 1 Tablet by mouth two times daily with meals for 7 days. 14 Tablet 03/20/2024 4 Active Problems Problem Noted Date Diagnosed Date Colon polyp 10/21/2023 Overview (10/21/2023): Colonoscopy 10/2023 large TA, repeat in 3 years Family history of colonic polyps 12/31/2022 Overview (12/31/2022): His brother had a polyp PVC (premature ventricular contraction) 06/28/19 23 Overview (06/28/2022): This was diagnosed at [facility] in about 04/2022 Other acne 05/19/2022 [...] Encounters Date Type Department Care Team Description 03/20/2024 4:35 PM CDT Office Visit [facility] [address] [facility] [place] [address] Ely Shah, BERT Sinus Infection 03/20/2024 Travel from Last 3 Months Immunizations Name [...] PHQ-2 Answer Date Recorded PHQ-2 TOTAL SCORE 0 12/23/2023 Social Connections Answer Date Recorded Frequency of Communication with Friends and Fami ly 0 02/18/2023 Alcohol Use Answer Date Recorded How often do you have a drink containing alcohol ? 1 12/23/2023 How many drinks containing a lcohol do you have on a typical day when you are drinking? 0 12/23/2023 How often do you have five or more drinks on one occasion? 0 12/23/2023 Financial Resource Strain Answer Date R ecorded [...] Sex Assigned at Male 05/01/2020 9:41 AM TECHNICAL SALES ADVISOR Gender Identity Male 05/01/2020 9:41 AM TECHNICAL SALES ADVISOR Sexual Orientation Straight 05/01/2020 9: 41 AM TECHNICAL SALES ADVISOR Obstetrics History Last Filed Vital Signs Vital Sign Reading Time Taken Comments Blood Pressure 141/82 03/20/2024 4:46 PM CDT Pulse 71 03/20/2024 4:46 PM CDT Temperature 36.5 ??C (97.7 ??F) 03/20/2024 4:46 PM CD T Respiratory Rate 20 03/20/2024 4:46 PM CDT Oxygen Saturation 96% 03/20/2024 4:46 PM CDT Inhaled Oxygen Concentration - - Weight 151.8 kg (334 lb 11.2 oz) 03/20/2024 4:46 PM CDT Height 179 cm (5' 10.47) 12/23/2023 12 :54 PM CDT Body Mass Index 47.38 12/23/2023 12:54 PM CDT Plan of Treatment Upcoming Encounters Date Type Department Care Team (Late st Contact Info) Description 07/02/2024 9:00 AM TECHNICAL SALES ADVISOR Orders Only [facility] [address] [place] [address] Lab, [place] 07/27/2024 9:15 AM TECHNICAL SALES ADVISOR Office Visit [facility] [address] [place] [address] Chuck Vanessa MD [address] [place] [address] Health Maintenance Due Date Last Done Comments HIV for age 15-65 1997 COVID-19 vaccine series ( season) 2024 05/01/2022, 04/04/2021 Influenza for age 9-49 02/12/2024 , 03/11/2022, 05/01/2020, Additional history exists BMI (ht and wt on same day) for age 18+ 12/22/2024 12/23/2023, 09/28/2023, 07/15/2023, Additional history exists Depression screening for age 12+ 12/22/2024 12/23/2023, 07/15/2023, 02/18/2023, Additional history exists Colonoscopy through age 75 10/16/202610/16, 10/17/2023, 10/17/2023 Lipids for age 35-44 01/01/2028 12/31/2022, 07/19/2022, 01/19/2021, Additional history exists Tetanus booster 07/15/2033 07/15/2023, 01/07/2012 Hepatitis C screening for age 18-79 Completed 02/08/2022 Tdap Completed 07/15/2023, 01/07/2012 Pneumococcal series for age 6-64 Aged Out No longer eligible based on patient's age to complete this topic Procedures Procedure Name Priority Date/Time Associated Diagnosis Comments COLONOSCOPY SCREENING Routine 10/17/2023 12:00 AM CDT Family history of colonic polyps LIPID PANEL W REFLEX MEASURED LDL Routine 12/31/2022 12:00 PM CDT Other hyperlipidemia ANTI HCV Routine 02/08/2022 11:45 AM CDT Need for hepatitis C screening test from Last 3 Months or Most Recently Relevant to Health Maintenance Results * COLONOSCOPY SCREENING (10/17/2023 12:00 AM CDT) Chuck Vanessa MD GI PROCEDURE ORD * LIPID PANEL W REFLEX MEASURED LDL (12/31/2022 12:00 PM CDT) CHOLESTEROL,TOTAL 182 100 - 199 mg/dL 01/01/2023 2:02 AM CDT [facility] Comment: Cholesterol, Total Reference Ranges Desirable <200 mg/dL Borderline 200-239 mg/dL High >=240 mg/dL TRIGLYCERIDES 128 <150 mg/dL 01/01/2023 2:02 AM CDT [facility] HDL CHOLESTEROL 43 >40 mg/dL 2:02 AM CDT [facility] NON-HDL CHOLESTEROL 139 <145 mg/dl 01/01/2023 2:02 AM CDT [facility] CHOL/HDL RATIO 4.23 <4.50 01/01/2023 2:02 AM CDT [facility] LDL CHOLESTEROL 113 <=130 mg/dL 01/01/2023 2:02 AM CDT [facility] VLDL CHOLESTEROL 26 <=30 mg/dL 01/01/2023 2:02 AM CDT [facility] PROVIDER ORDERED STATUS RANDOM 01/01/2023 2:02 AM CDT [facility] Blood BLOOD SPECIMEN / Unknown Venipuncture / Unknown 12/31/2022 12:00 PM CDT 12/31/2022 12:00 PM CDT Chuck Vanessa MD CHEMISTRY [facility] [address] [place] [address], * ANTI HCV (02/08/2022 11:45 AM CDT) HEPATITIS C ANTIBODY Non-React miki Non-React miki 02/09/2022 4:30 AM CDT [facility] Comment:Antibodies to HCV no t detected; does not exclude the possibility of exposure to HCV. Blood BLOOD SPECIMEN / Unknown Venipuncture / Unknown 02/08/2022 11:45 AM CDT 02/08/2022 11:45 AM CDT Chuck Vanessa MD SEND OUTS [facility] [address] [place] [address], from Last 3 Months or Most Recently Relevant to Health Maintenance Care Teams Mortgage Operations Manager Relationship Specialty Start Date End Date Chuck Vanessa MD [address] [place], [place] [id number] PCP - General 12/17/05
[2024-04-22 21:44] VITALS: O2SAT 98
[2024-04-22 21:46] LABS: Basophils Absolute Auto 0.02 K/uL (0.00-0.30); Basophils Percent Auto 0.2 % (0.0-3.0); Eosinophils Absolute Auto 0.21 K/uL (0.00-0.50); Hematocrit 44.2 % (37.0-53.0); Hemoglobin* 14.3 gm/dL (13.5-17.5); Immature Granulocytes Abs Auto 0.04 K/uL (0.00-0.30); Immature Granulocytes Pct Auto 0.4 %; Lymphocytes Percent Auto 18.1 % (20-44); Mean Corpuscular HGB Conc 32 gm/dL (32-36); Mean Corpuscular Hemoglobin 29 pg (26-34); Mean Corpuscular Volume 89 fL (80-100); Monocytes Percent Auto 7.3 % (0.0-11.0); Neutrophils Absolute Auto 7.39 K/uL (1.7-7.0); Platelet Count* 277 K/uL (140-440); RDW Coefficient of Variation % 12.2 % (11.5-15.5); Red Blood Count 4.96 m/uL (4.30-5.90); White Blood Count* 10.27 K/uL (4.50-11.00)
[2024-04-22 21:53] LABS: Troponin, Point-of-Care* 0.01 ng/ml (0.01-0.04)
[2024-04-22 21:59] LABS: Slide Review Reflex No
[2024-04-22 22:02] LABS: Albumin* 4.2 g/dL (3.3-5.0); Chloride* 102 mmol/L (96-114)
[2024-04-22 22:03] LABS: Potassium* 3.7 mmol/L (3.6-5.1); Sodium* 138 mmol/L (135-149)
[2024-04-22 22:05] LABS: Creatinine* 0.8 mg/dL (0.5-1.5); Estimated Glomerular Filt Rate 113 ml/min
[2024-04-22 22:06] LABS: Alanine Aminotransferase* 38 U/L (4-50); Alkaline Phosphatase* 80 U/L (40-150); Anion Gap 8 mEq/L (7-15); Aspartate Amino Transferase* 28 U/L (12-35); Bilirubin Direct* 0.1 mg/dL (0.0-0.5); Bilirubin Total* 0.1 mg/dL (0.1-1.5); Blood Urea Nitrogen* 16 mg/dL (5-24); Calcium* 8.6 mg/dL (8.4-10.6); Carbon Dioxide* 28 mmol/L (20-32); Glucose* 147 mg/dL (60-115); Magnesium* 2.2 mg/dL (1.5-2.6); Total Protein* 7.2 g/dL (6.0-8.3)
[2024-04-22 22:09] LABS: C Reactive Protein* 0.6 mg/dL (0.5-1.0)
[2024-04-22 22:20] LABS: Troponin I* < 0.01 ng/mL (0.01-0.04)
[2024-04-22 22:58] VITALS: BP 113/56; PULSE 65; RESP 16; O2SAT 98
[2024-04-22 23:47] VITALS: BP 113/67; PULSE 62; RESP 16; TEMP 36.7
== END 2024-04-22 23:48 | disposition home or self-care (01) ==
PROVIDERS: Emergency Provider Family Medicine; PCP Family Medicine
DX: R07.89 Other chest pain (principal); F41.9 Anxiety disorder, unspecified
CPT/HCPCS: 36415; 71046; 80048; 80076; 83605; 83735; 84443; 84484; 85025; 86140; 93005; 94761; 99284; 99285

== ENCOUNTER 2024-05-15 16:44 | Emergency (ER) | payer BC, SELFPAY ==
[2024-05-15] VITALS (7 sets, daily range): BP systolic 126–144; BP diastolic 79–101; PULSE 66–99; RESP 16; TEMP 36.2; O2SAT 95–99
--- NOTE | 2024-05-15 16:54 | ED_ITS ---
HPI - General Adult General Date Seen: 05/15/24 Chief complaint: Arrhythmia/Palpitations Stated complaint: Racing heart Time Seen by Provider: 05/15/24 16:53 History of Present Illness HPI narrative: 44-year-old male with a past medical history of anxiety, PVCs, hyperlipidemia, elevated BMI, obstructive sleep apnea with CPAP. He was here in the ER on April 23 for chest pain. Vital signs during that ER visit showed a pulse of 76, blood pressure 154/85, respiratory rate 16, pulse ox 100%. He did have frequent PVCs noted on his monitor. Lab work showed a white count of 10.2, hemoglobin 14.3, platelet count 277, sodium 138, potassium 3.7, bicarb 28, BUN 16, creatinine 0.8, glucose 147, venous lactic 2.0, calcium 8.6, magnesium 2.2, normal liver function tests. Normal point of care troponin. Normal TSH at 1.64. Chest x-ray was read by Radiology as negative. He had follow-up with his doctors at the [facility]. He had an outpatient echocardiogram that was normal. Ventricular ejection fraction of 60-65%. No valvular disease. Questionable mild right atrial enlargement. No other structural heart abnormalities. In conversation with his doctor, given the frequency of his PVCs, they are considering starting him on a beta-roque in getting a Cardiology referral. He is wearing the Zio patch now on plans to send in a couple of days. This afternoon he was at home doing his normal activities. He started feeling his heart racing. His pulse rate was between 110 and 124 this afternoon. Not really skipping or regular, just faster than normal. He thought he might be just anxious so he took 50 mg of hydroxyzine but it did not help. Later on after taking the hydroxyzine he was walking around and had an episode with walking up the steps where he became dizzy and lightheaded. His heart was still racing and his heart rate really did not change during that episode. He is not having any chest pain today. No trouble breathing. No recent cough. No known fever. No nausea or vomiting or diarrhea. Normal oral intake. No drugs. His father in law was sick with a GI illness yesterday but he is not having any GI symptoms yet. He does say he feels perhaps mildly feverish today but does not have any other infection symptoms. He he suspects that he might just be anxious today, but wonders why they hydroxyzine did not help with heart rate. Given the elevated heart rate and the presyncope, his family made him come here to the ER. Related Data Home Medications ?Medication ?Instructions ?Recorded ?Confirmed atorvastatin 10 mg tablet 10 mg PO DAILY 08/02/22 05/15/24 hydroxyzine HCl 25 mg tablet 25 mg 08/02/22 bupropion HCl 150 mg 24 hr tablet, 150 mg PO QAM 05/15/24 05/15/24 extended release Previous Rx's ?Medication ?Instructions ?Recorded ciprofloxacin HCl 500 mg tablet 500 mg PO BID #28 tabs 12/02/22 Allergies Allergy/AdvReac Type Severity Reaction Status Date / Time No Known Drug Allergies [facility] Ver[facility] 04[facility]25[facility]23 15:[facility] Social History Smoking Status: Never smoker Do you use any of these nicotine containing products: None Second hand tobacco smoke exposure: No How often do you have a drink containing alcohol: never How often do you have six or more drinks on one occasion: Never AUDIT-C Alcohol total score: 0 Non-prescribed substance use: denies use service: No Exam Narrative: Exam Narrative: Constitutional: Appears well-developed and well-nourished. Alert. Conversant. Non toxic. HENT: Head: Atraumatic. Nose: Nose normal. Mouth/Throat: Oral mucosa is clear and moist. no trismus. Pharynx normal. Eyes: Conjunctivae normal. EOM normal. Pupils equal, round, and reactive to light. No scleral icterus. Neck: Normal range of motion. Neck supple. No tracheal deviation present. No JVD. No thyromegaly. Cardiovascular: Normal rate, rate in the 90s currently. One PVC on his EKG. regular rhythm. No gallop. No friction rub. No murmur heard. Symmetric radial and PT artery pulses Pulmonary/Chest: Effort normal. No stridor. No respiratory distress. No wheezes. No rales. No rhonchi . No tenderness. Abdominal: Soft. Bowel sounds normal. No distension. No mass. No tenderness. No rebound. No guarding. Musculoskeletal: RUE: Normal range of motion. No tenderness. No deformity LUE: Normal range of motion. No tenderness. No deformity RLE: Normal range of motion. No edema. No tenderness. No deformity LLE: Normal range of motion. No edema. No tenderness. No deformity Lymph: No cervical adenopathy. Neurological: Alert and oriented to person, place, and time. Normal strength. CN II-VII intact. No sensory deficit. GCS eye subscore is 4. GCS verbal subscore is 5. GCS motor subscore is 6. Normal coordination Skin: Skin is warm and dry. No rash noted. No pallor. Normal capillary refill. Psychiatric: Normal mood. Normal affect. Very pleasant. Const: Vital Signs, click to edit/add: Vital Signs - 24 hr 05/15/24 16:54 05/15/24 17:35 05/15/24 17:36 Temperature 97.2 F L Pulse Rate 75 79 Pulse Rate [Pulse Oximeter] 99 Respiratory Rate 16 Blood Pressure 126/79 Blood Pressure [Ri ght Upper Arm] 144/101 H Pulse Oximetry 99 96 95 Oxygen Delivery Me thod Room Air 05/15/24 17:45 05/15/24 18:00 05/15/24 18:15 Temperature Pulse Rate 77 78 71 Pulse Rate [Pulse Oximeter] Respiratory Rate Blood Pressure Blood Pressure [Ri ght Upper Arm] Pulse Oximetry 96 96 95 Oxygen Delivery Me thod 05/15/24 18:30 Temperature Pulse Rate 66 Pulse Rate [Pulse Oximeter] Respiratory Rate Blood Pressure Blood Pressure [Ri ght Upper Arm] Pulse Oximetry 95 Oxygen Delivery Me thod Course Vital Signs Vital signs: Initial Vital Signs Temperature 97.2 F L 05/15/24 16:54 Temperature Source Temporal Artery Scan 05/15/24 16:54 Pulse Rate 99 05/15/24 16:54 Respiratory Rate 16 05/15/24 16:54 Blood Pressure 144/101 H 05/15/24 16:54 Blood Pressure Mean 115 H 05/15/24 16:54 Blood Pressure Position Sitting 05/15/24 16:54 Pulse Oximetry 99 05/15/24 16:54 Oxygen Delivery Method Room Air 05/15/24 16:54 Vital Signs Temperature 97.2 F L 05/15/24 16:54 Pulse Rate 99 05/15/24 16:54 Respiratory Rate 16 05/15/24 16:54 Blood Pressure 144/101 H 05/15/24 16:54 Pulse Oximetry 99 05/15/24 16:54 Oxygen Delivery Method Room Air 05/15/24 16:54 Temperature 97.2 F L 05/15/24 16:54 Pulse Rate 66 05/15/24 18:30 Respiratory Rate 16 05/15/24 16:54 Blood Pressure 126/79 05/15/24 17:35 Pulse Oximetry 95 05/15/24 18:30 Oxygen Delivery Method Room Air 05/15/24 16:54 Medical Decision Making MDM Narrative Medical decision making narrative: This patient presents for evaluation of palpitations and elevated resting heart rate at home that lasted a couple of hours. He confirmed a heart rate around 120 (range 110-124) with his pulse oximeter at home. By the time he got to the ER his R is already slowing down and initial heart rate here in the ER was in the 90s.. Initial ECG shows normal sinus rhythm and no dysrhythmogenic abnormality such as WPW, prolonged QT, Brugada syndrome, and no definite ischemia ischemia. 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 He is having some PVCs which are previously known. He is actually currently wearing a Zio patch to gauge his total burden of PVCs and he is going through a workup with his primary care doctor. It sounds like they are planning to likely start him on a beta-roque in the near future, but he does not to start 1 today. A broad differential diagnosis was considered including SVT, Atrial fibrillation, ventricular arrhythmia, thyroid disease, acute electrolyte abnormality, drugs/medications, caffeine intake or other stimulants, medication side effect, anemia, heart disease, PE, among others. The workup and exam here in ED shows not specific cause of the patient's palpitations, and no risks factors to warrant admission. Given his heart rate being 110-120, suspect this was probably sinus tachycardia rather than some other more malignant arrhythmia such as AFib, V-tach, torsades. Patient also has history of anxiety which could be playing a role. However he says he did not really feel ?anxious? this afternoon. He took a dose of anxiety medicine (hydroxyzine) which really did not help his symptoms. He is not otherwise ill or feverish. No vomiting or diarrhea or symptoms of dehydration. Clinical judgement suggests that supportive outpatient management is indicated. He will continue his Holter monitor on follow-up with his doctor this the [facility]. Precautions for return to the ER reviewed in detail with the patient and his . Lab Data Labs: Lab Results 05/15/24 05/15/24 Range/Units 17:31 17:47 WBC 8.68 (4.50-11.00) K/uL RBC 5.05 (4.30-5.90) m/uL Hgb 14.7 (13.5-17.5) gm/dL Hct 45.1 (37.0-53.0) % MCV 89 (80-100) fL MCH 29 (26-34) pg MCHC 33 (32-36) gm/dL RDW Coeff of Kevin 12.3 (11.5-15.5) % Plt Count 272 (140-440) K/uL Neut % (Auto) 66.0 (42.0-72.0) % Lymph % (Auto) 23.7 (20-44) % [place] % (Auto) 7.4 (0.0-11.0) % Eos % (Auto) 2.0 (0.0-7.0) % Baso % (Auto) 0.6 (0.0-3.0) % Neut # (Auto) 5.73 (1.7-7.0) K/uL Lymph # (Auto) 2.06 (0.90-2.90) K/uL [place] # (Auto) 0.60 (0.00-0.90) K/UL Eos # (Auto) 0.17 (0.00-0.50) K/uL Baso # (Auto) 0.05 (0.00-0.30) K/uL Abs Immat Gran (auto) 0.03 (0.00-0.30) K/uL Imm/Tot Granulo (auto) 0.3 % D-Dimer Quant (PE/DVT) < 0.27 (0.00-0.50) ug/ml Sodium 138 (135-149) mmol/L Potassium 4.5 (3.6-5.1) mmol/L Chloride 103 (96-114) mmol/L Carbon Dioxide 29 (20-32) mmol/L Anion Gap 6 L (7-15) mEq/L BUN 16 (5-24) mg/dL Creatinine 0.9 (0.5-1.5) mg/dL Estimated GFR 109 ml/min Glucose 109 (60-115) mg/dL Calcium 9.7 (8.4-10.6) mg/dL Troponin I < 0.01 L (0.01-0.04) ng/mL POC Troponin I 0.00 L (0.01-0.04) ng/ml ECG Data Attestation: I personally reviewed and interpreted this ECG as follows: Interpretation: Normal sinus rhythm with 1 PVC Rate: 92 VA: 156 QRS axis: Normal axis. No pathologic Q-waves. ST segment/T wave: No ST segment elevation or depression. No Brugada syndrome. QTc: 460 Discharge Plan Discharge Clinical Impression: Palpitations Patient Disposition: Home, Self-Care Instructions: Heart Palpitations (DC) Additional Instructions: As we discussed, please return to the ER right away if you have any concerning symptoms or other new worrisome symptoms such as chest pain, fainting, more episodes of racing heart, trouble breathing, or if you have any other problems. Please follow-up with your regular doctor at the [facility] and return your Zio patch on schedule. Prescriptions: No Action atorvastatin 10 mg tablet 10 mg PO DAILY Patient Comments: TAKE ONE TABLET BY MOUTH ONE TIME DAILY hydroxyzine HCl 25 mg tablet 25 mg Patient Comments: TAKE ONE OR TWO TABLETS BY MOUTH THREE TIMES DAILY NEEDED FOR ANXIETY ciprofloxacin HCl 500 mg tablet 500 mg PO BID Qty: 28 0RF bupropion HCl 150 mg tablet extended release 24 hr 150 mg PO QAM Follow Up/Referrals: Chuck Vanessa MD [Primary Care Provider] - Stand Alone Forms: [employer] Info Instructions
[2024-05-15 17:59] LABS: Hematocrit 45.1 % (37.0-53.0); Hemoglobin* 14.7 gm/dL (13.5-17.5); Lymphocytes Percent Auto 23.7 % (20-44); Mean Corpuscular HGB Conc 33 gm/dL (32-36); Mean Corpuscular Hemoglobin 29 pg (26-34); Mean Corpuscular Volume 89 fL (80-100); Monocytes Percent Auto 7.4 % (0.0-11.0); Platelet Count* 272 K/uL (140-440); RDW Coefficient of Variation % 12.3 % (11.5-15.5); Red Blood Count 5.05 m/uL (4.30-5.90); White Blood Count* 8.68 K/uL (4.50-11.00)
[2024-05-15 18:00] LABS: Basophils Absolute Auto 0.05 K/uL (0.00-0.30); Basophils Percent Auto 0.6 % (0.0-3.0); Eosinophils Absolute Auto 0.17 K/uL (0.00-0.50); Immature Granulocytes Abs Auto 0.03 K/uL (0.00-0.30); Immature Granulocytes Pct Auto 0.3 %; Lymphocytes Absolute Auto 2.06 K/uL (0.90-2.90); Neutrophils Absolute Auto 5.73 K/uL (1.7-7.0)
[2024-05-15 18:06] LABS: Slide Review Reflex No
[2024-05-15 18:15] LABS: Chloride* 103 mmol/L (96-114); Potassium* 4.5 mmol/L (3.6-5.1); Sodium* 138 mmol/L (135-149)
[2024-05-15 18:18] LABS: Anion Gap 6 mEq/L (7-15); Blood Urea Nitrogen* 16 mg/dL (5-24); Carbon Dioxide* 29 mmol/L (20-32); Creatinine* 0.9 mg/dL (0.5-1.5); Estimated Glomerular Filt Rate 109 ml/min
[2024-05-15 18:19] LABS: Calcium* 9.7 mg/dL (8.4-10.6); Glucose* 109 mg/dL (60-115)
[2024-05-15 18:33] LABS: Troponin I* < 0.01 ng/mL (0.01-0.04)
[2024-05-15 18:40] LABS: D Dimer Quantitative* < 0.27 ug/ml (0.00-0.50)
== END 2024-05-15 19:04 | disposition home or self-care (01) ==
PROVIDERS: Emergency Provider Emergency Medicine; PCP Family Medicine
DX: R00.2 Palpitations (principal)
CPT/HCPCS: 36415; 80048; 84484; 85025; 85379; 99283; 99284